=== PATIENT | female | born 1945 | race Caucasian/White ===

== ENCOUNTER 2018-06-15 23:18 | Inpatient (IN) | payer MEDICARE, OTHER ==
[~2018-06-15] VITALS: Ht 175.3 cm; Wt 84.4 kg
[~2018-06-15 23:18] MED LIST: ALBU90OI INH; ALBU90OI6 INH; AMIT50 PO; CHLO25 PO; CLON.5 PO; CLON1 PO; DILTIAZEM 24HR180 M1 PO; FLUSAL5005 INH; FURO20 PO; FURO40 PO; GABA300 PO; HYDACE10B PO; HYDRA50 PO; METF500 PO; METO100 PO; NYST100P TOP; Norco 10-325 T1 EACH PO; OXAZEPAM; OXYC5; OXYC5 PO; Oxazepam30 MG PO; POTCHL20ER PO; PROACE100 PO; RANI150 PO; SERAX PO
[2018-06-16 00:14] LABS: BASOPHILS ABSOLUTE AUTO 0.03 K/mm3 (0.00-0.23); BASOPHILS PERCENT AUTO 0 % (0-2); EOSINOPHILS ABSOLUTE AUTO 0.25 K/mm3 (0.00-0.68); EOSINOPHILS PERCENT AUTO 1 % (0-6); Hematocrit 29.3 % (33.0-51.0); Hemoglobin 9.1 g/dL (11.5-16.0); IMMATURE GRAN ABSOLUTE AUTO 0.71 K/mm3 (0.00-0.10); IMMATURE GRAN PERCENT AUTO 3 % (0-1); LYMPHOCYTES ABSOLUTE AUTO 0.36 K/mm3 (0.84-5.20); LYMPHOCYTES PERCENT AUTO 2 % (21-46); MONOCYTES ABSOLUTE AUTO 1.08 K/mm3 (0.16-1.47); MONOCYTES PERCENT AUTO 5 % (4-13); Mean Corpuscular HGB 29.5 pg (26.0-34.0); Mean Corpuscular HGB Conc 31.1 g/dL (31.5-36.5); Mean Corpuscular Volume 95 fL (80-100); NEUTROPHILS ABSOLUTE AUTO 18.32 K/mm3 (1.96-9.15); NEUTROPHILS PERCENT AUTO 88 % (41-73); Platelet Count 182 K/mm3 (150-400); RDW Coefficient Variation 14.4 % (11.7-14.2); RDW Standard Deviation 49.6 fL (35.1-46.3); Red Blood Cell Count 3.08 M/mm3 (3.80-5.20); White Blood Cell Count 20.75 K/mm3 (4.00-11.30)
[2018-06-16 00:16] LABS: Source, Urine Catheter
[2018-06-16 00:19] LABS: PCO2 Arterial 44.1 mmHg (35-45); PO2 Arterial 76.7 mmHg (80-100); pH Blood Arterial 7.41 (7.35-7.45)
[2018-06-16 00:21] LABS: Bilirubin, Urine Neg (Neg); Blood, Urine Neg (Neg); Glucose Qualitative, Urine Neg (Neg); Ketones, Urine Neg (Neg); Leukocyte Esterase, Urine 1+ (Neg); Nitrite, Urine Neg (Neg); Protein, Urine Neg (Neg); Urobilinogen, Urine NORM (Normal)
[2018-06-16 00:23] LABS: Appearance, Urine Clear (Clear); Color, Urine Yellow (P-Yellow)
[2018-06-16 00:27] LABS: International Normalized Ratio 1.03; Prothrombin Time Results 10.6 Sec (9.7-11.5)
[2018-06-16 00:27] LABS: Bacteria Few /hpf; Red Blood Cells, Urine 0-2 /hpf (0-2); Squamous Epithelial Cells Few /hpf (Few)
[2018-06-16 00:29] LABS: Alanine Aminotransfer (ALT/SGP 11 U/L (12-78); Albumin, Blood 2.7 g/dL (3.4-5.0); Albumin/Globulin Ratio 0.8 (0.8-1.8); Alk Phos 100 U/L (50-136); Anion Gap 10 mmol/L (6-16); Aspartate Aminotrans (AST/SGOT 14 U/L (12-37); Bilirubin, Total 0.2 mg/dL (0.1-1.0); Blood Urea Nitrogen 29 mg/dL (8-24); Bun/Creatinine Ratio 16.8 (12.0-20.0); CO2, Blood 25 mmol/L (21-32); Chloride, Blood 102 mmol/L (98-108); Creatinine, Blood 1.73 mg/dL (0.40-1.00); Ethanol (Alcohol), Blood, Med <3 mg/dL; Globulin, Blood 3.5 g/dL (2.2-4.0); Glomerular Filtration Rate 31 (60-); Glucose, Blood 86 mg/dL (70-99); Magnesium, Blood 1.7 mg/dL (1.6-2.4); Potassium, Blood 4.1 mmol/L (3.5-5.5); Sodium, Blood 137 mmol/L (136-145); Total Protein, Blood 6.2 g/dL (6.4-8.2); Troponin I <0.015 ng/mL (0.000-0.040)
[2018-06-16 00:43] LABS: U Amphetamine Screen Not Detected; U Barbituate Screen Not Detected; U Benzodiazapine Screen DETECTED; U Buprenorphine Screen Not Detected; U Cannabinoids Screen Not Detected; U Cocaine Screen Not Detected; U Methadone Screen Not Detected; U Methamphetamine Screen Not Detected; U Opiates Screen DETECTED; U Oxycodone Screen DETECTED; U Phencyclidine Screen Not Detected; U Propoxyphene Screen Not Detected
[2018-06-16] MEDS ORDERED: ALBU90OI6 INH (01:35)
[2018-06-16] MEDS ORDERED: ALLO100 PO (01:36)
[2018-06-16] MEDS ORDERED: AMIT50 PO (01:37)
[2018-06-16] MEDS ORDERED: BISA5EC PO (01:37)
[2018-06-16] MEDS ORDERED: RANI150EL PO (01:39)
[2018-06-16 14:12] LABS: Hematocrit 26.1 % (33.0-51.0); Hemoglobin 7.8 g/dL (11.5-16.0); Mean Corpuscular HGB 29.1 pg (26.0-34.0); Mean Corpuscular HGB Conc 29.9 g/dL (31.5-36.5); Mean Corpuscular Volume 97 fL (80-100); Mean Platelet Volume 10.1 fL (9.1-12.4); Platelet Count 142 K/mm3 (150-400); RDW Coefficient Variation 14.5 % (11.7-14.2); RDW Standard Deviation 51.2 fL (35.1-46.3); Red Blood Cell Count 2.68 M/mm3 (3.80-5.20); White Blood Cell Count 14.67 K/mm3 (4.00-11.30)
[2018-06-16 14:36] LABS: Albumin, Blood 2.1 g/dL (3.4-5.0); Albumin/Globulin Ratio 0.7 (0.8-1.8); Bilirubin, Total 0.2 mg/dL (0.1-1.0); Bun/Creatinine Ratio 18.2 (12.0-20.0); Calcium, Blood 7.7 mg/dL (8.5-10.1); Creatinine, Blood 1.76 mg/dL (0.40-1.00); Globulin, Blood 3.1 g/dL (2.2-4.0); Potassium, Blood 3.9 mmol/L (3.5-5.5); Total Protein, Blood 5.2 g/dL (6.4-8.2)
[2018-06-16 22:30] LABS: Hemoglobin 7.9 g/dL (11.5-16.0); Mean Corpuscular HGB 29.5 pg (26.0-34.0); Mean Corpuscular HGB Conc 30.4 g/dL (31.5-36.5); Mean Corpuscular Volume 97 fL (80-100); Mean Platelet Volume 10.6 fL (9.1-12.4); Platelet Count 157 K/mm3 (150-400); RDW Coefficient Variation 14.5 % (11.7-14.2); Red Blood Cell Count 2.68 M/mm3 (3.80-5.20); White Blood Cell Count 20.99 K/mm3 (4.00-11.30)
[2018-06-16 22:53] LABS: BAND PERCENT MAN 25 % (0-8); BASOPHILS PERCENT MAN 0 % (0-2); EOSINOPHILS PERCENT MAN 0 % (0-6); LYMPHOCYTES ABSOLUTE MAN 0.83 K/mm3 (0.84-5.20); LYMPHOCYTES PERCENT MAN 4 % (21-46); METAMYELOCYTE PERCENT MAN 1 % (0-0); MONOCYTES ABSOLUTE MAN 0.41 K/mm3 (0.16-1.47); MONOCYTES PERCENT MAN 2 % (4-13); NEUTROPHILS ABSOLUTE MAN 19.52 K/mm3 (1.96-9.15); SEG NEUTROPHILS PERCENT MAN 68 % (41-73); TOTAL CELLS COUNTED 100
[2018-06-17 04:01] LABS: BASOPHILS ABSOLUTE AUTO 0.03 K/mm3 (0.00-0.23); BASOPHILS PERCENT AUTO 0 % (0-2); EOSINOPHILS ABSOLUTE AUTO 0.09 K/mm3 (0.00-0.68); EOSINOPHILS PERCENT AUTO 1 % (0-6); Hematocrit 25.1 % (33.0-51.0); Hemoglobin 7.6 g/dL (11.5-16.0); IMMATURE GRAN ABSOLUTE AUTO 0.68 K/mm3 (0.00-0.10); IMMATURE GRAN PERCENT AUTO 4 % (0-1); LYMPHOCYTES ABSOLUTE AUTO 0.96 K/mm3 (0.84-5.20); LYMPHOCYTES PERCENT AUTO 5 % (21-46); MONOCYTES ABSOLUTE AUTO 0.85 K/mm3 (0.16-1.47); MONOCYTES PERCENT AUTO 5 % (4-13); Mean Corpuscular HGB 29.2 pg (26.0-34.0); Mean Corpuscular HGB Conc 30.3 g/dL (31.5-36.5); Mean Corpuscular Volume 97 fL (80-100); Mean Platelet Volume 10.3 fL (9.1-12.4); NEUTROPHILS ABSOLUTE AUTO 15.48 K/mm3 (1.96-9.15); NEUTROPHILS PERCENT AUTO 86 % (41-73); Platelet Count 167 K/mm3 (150-400); RDW Coefficient Variation 14.6 % (11.7-14.2); RDW Standard Deviation 51.4 fL (35.1-46.3); White Blood Cell Count 18.09 K/mm3 (4.00-11.30)
[2018-06-17 04:18] LABS: Bun/Creatinine Ratio 20.6 (12.0-20.0); Creatinine, Blood 1.75 mg/dL (0.40-1.00); Potassium, Blood 4.4 mmol/L (3.5-5.5)
[2018-06-17] MEDS ORDERED: Zantac150 MG PO (11:38)
[2018-06-17] MEDS ORDERED: COLCRYS0.6 MG PO (11:39)
[2018-06-17] MEDS ORDERED: CLON1 PO (11:40)
[2018-06-17] MEDS ORDERED: IBUP600 PO (11:43)
[2018-06-18 04:20] LABS: BASOPHILS ABSOLUTE AUTO 0.05 K/mm3 (0.00-0.23); BASOPHILS PERCENT AUTO 0 % (0-2); EOSINOPHILS ABSOLUTE AUTO 0.13 K/mm3 (0.00-0.68); EOSINOPHILS PERCENT AUTO 1 % (0-6); Hematocrit 27.2 % (33.0-51.0); Hemoglobin 8.3 g/dL (11.5-16.0); IMMATURE GRAN PERCENT AUTO 3 % (0-1); LYMPHOCYTES PERCENT AUTO 6 % (21-46); MONOCYTES ABSOLUTE AUTO 0.64 K/mm3 (0.16-1.47); MONOCYTES PERCENT AUTO 4 % (4-13); Mean Corpuscular HGB 28.4 pg (26.0-34.0); Mean Corpuscular HGB Conc 30.5 g/dL (31.5-36.5); Mean Platelet Volume 10.6 fL (9.1-12.4); NEUTROPHILS ABSOLUTE AUTO 14.37 K/mm3 (1.96-9.15); NEUTROPHILS PERCENT AUTO 86 % (41-73); Platelet Count 193 K/mm3 (150-400); RDW Coefficient Variation 14.4 % (11.7-14.2); RDW Standard Deviation 48.8 fL (35.1-46.3); Red Blood Cell Count 2.92 M/mm3 (3.80-5.20); White Blood Cell Count 16.69 K/mm3 (4.00-11.30)
[2018-06-18 04:22] LABS: Mean Corpuscular Volume 93 fL (80-100)
[2018-06-18 04:46] LABS: Albumin, Blood 2.2 g/dL (3.4-5.0); Anion Gap 10 mmol/L (6-16); Blood Urea Nitrogen 33 mg/dL (8-24); Bun/Creatinine Ratio 21.3 (12.0-20.0); CO2, Blood 25 mmol/L (21-32); Calcium, Blood 8.3 mg/dL (8.5-10.1); Chloride, Blood 109 mmol/L (98-108); Creatinine, Blood 1.55 mg/dL (0.40-1.00); Glomerular Filtration Rate 35 (60-); Glucose, Blood 86 mg/dL (70-99); Phosphorus, Blood 3.1 mg/dL (2.5-4.9); Potassium, Blood 4.2 mmol/L (3.5-5.5); Sodium, Blood 144 mmol/L (136-145)
[2018-06-19 05:14] LABS: BASOPHILS ABSOLUTE AUTO 0.06 K/mm3 (0.00-0.23); BASOPHILS PERCENT AUTO 0 % (0-2); EOSINOPHILS ABSOLUTE AUTO 0.03 K/mm3 (0.00-0.68); EOSINOPHILS PERCENT AUTO 0 % (0-6); Hematocrit 28.6 % (33.0-51.0); Hemoglobin 8.8 g/dL (11.5-16.0); IMMATURE GRAN PERCENT AUTO 1 % (0-1); LYMPHOCYTES ABSOLUTE AUTO 1.38 K/mm3 (0.84-5.20); LYMPHOCYTES PERCENT AUTO 6 % (21-46); MONOCYTES ABSOLUTE AUTO 0.79 K/mm3 (0.16-1.47); MONOCYTES PERCENT AUTO 4 % (4-13); Mean Corpuscular HGB 28.2 pg (26.0-34.0); Mean Corpuscular HGB Conc 30.8 g/dL (31.5-36.5); Mean Corpuscular Volume 92 fL (80-100); NEUTROPHILS ABSOLUTE AUTO 20.06 K/mm3 (1.96-9.15); NEUTROPHILS PERCENT AUTO 89 % (41-73); Platelet Count 270 K/mm3 (150-400); RDW Coefficient Variation 14.7 % (11.7-14.2); RDW Standard Deviation 49.8 fL (35.1-46.3); Red Blood Cell Count 3.12 M/mm3 (3.80-5.20); White Blood Cell Count 22.52 K/mm3 (4.00-11.30)
[2018-06-19 05:31] LABS: Albumin, Blood 2.4 g/dL (3.4-5.0); Anion Gap 13 mmol/L (6-16); Blood Urea Nitrogen 34 mg/dL (8-24); CO2, Blood 21 mmol/L (21-32); Calcium, Blood 8.4 mg/dL (8.5-10.1); Chloride, Blood 110 mmol/L (98-108); Creatinine, Blood 1.36 mg/dL (0.40-1.00); Glomerular Filtration Rate 40 (60-); Glucose, Blood 123 mg/dL (70-99); Potassium, Blood 4.1 mmol/L (3.5-5.5); Sodium, Blood 144 mmol/L (136-145)
[2018-06-20 05:33] LABS: BASOPHILS ABSOLUTE AUTO 0.05 K/mm3 (0.00-0.23); BASOPHILS PERCENT AUTO 0 % (0-2); EOSINOPHILS ABSOLUTE AUTO 0.14 K/mm3 (0.00-0.68); EOSINOPHILS PERCENT AUTO 1 % (0-6); Hemoglobin 8.6 g/dL (11.5-16.0); IMMATURE GRAN ABSOLUTE AUTO 0.18 K/mm3 (0.00-0.10); IMMATURE GRAN PERCENT AUTO 2 % (0-1); LYMPHOCYTES ABSOLUTE AUTO 1.14 K/mm3 (0.84-5.20); LYMPHOCYTES PERCENT AUTO 10 % (21-46); MONOCYTES ABSOLUTE AUTO 0.87 K/mm3 (0.16-1.47); MONOCYTES PERCENT AUTO 8 % (4-13); Mean Corpuscular HGB 28.5 pg (26.0-34.0); Mean Corpuscular HGB Conc 30.7 g/dL (31.5-36.5); Mean Corpuscular Volume 93 fL (80-100); Mean Platelet Volume 10.5 fL (9.1-12.4); NEUTROPHILS ABSOLUTE AUTO 9.04 K/mm3 (1.96-9.15); NEUTROPHILS PERCENT AUTO 79 % (41-73); Platelet Count 242 K/mm3 (150-400); RDW Coefficient Variation 14.8 % (11.7-14.2); RDW Standard Deviation 51.6 fL (35.1-46.3); Red Blood Cell Count 3.02 M/mm3 (3.80-5.20); White Blood Cell Count 11.42 K/mm3 (4.00-11.30)
[2018-06-20 05:54] LABS: Albumin, Blood 2.4 g/dL (3.4-5.0); Anion Gap 11 mmol/L (6-16); Blood Urea Nitrogen 31 mg/dL (8-24); Bun/Creatinine Ratio 23.3 (12.0-20.0); CO2, Blood 23 mmol/L (21-32); Calcium, Blood 8.5 mg/dL (8.5-10.1); Chloride, Blood 111 mmol/L (98-108); Creatinine, Blood 1.33 mg/dL (0.40-1.00); Glomerular Filtration Rate 41 (60-); Glucose, Blood 115 mg/dL (70-99); Phosphorus, Blood 2.6 mg/dL (2.5-4.9); Potassium, Blood 3.6 mmol/L (3.5-5.5); Sodium, Blood 145 mmol/L (136-145)
[2018-06-22] MEDS ORDERED: ALLO100 PO (09:13)
[2018-06-22] MEDS ORDERED: FURO20 PO (09:14)
[2018-06-22] MEDS ORDERED: DOCU100 PO (09:14)
[2018-06-22] MEDS ORDERED: SACC250C PO (09:15)
[2018-06-22] MEDS ORDERED: DULERA 200 MCG/13 GM INH (09:15)
[2018-06-22] MEDS ORDERED: DOXY100 PO (09:17)
== END 2018-06-22 14:25 | disposition home or self-care (01) | DRG 871 ==
LOC: ER 23:18 → PCU 06-16 04:54 → ICUW 06-16 04:54 → ICUE 06-16 04:54 → PCU 06-17 17:11 → MEDS 06-18 15:14 → ENPENDDIS 06-22 09:00 → MEDS 06-22 14:25
PROVIDERS: Emergency Medicine; Hospitalist; Internal Medicine; Internal Medicine Critical Care Medicine
PROC: 06HM33Z Insertion of Infusion Device into Right Femoral Vein, Percutaneous Approach (ICD-10-PCS; principal; 2018-06-16)
PROC: B54BZZA Ultrasonography of Right Lower Extremity Veins, Guidance (ICD-10-PCS; 2018-06-16)
PROC: 3E033XZ Introduction of Vasopressor into Peripheral Vein, Percutaneous Approach (ICD-10-PCS; 2018-06-16)
PROC: 5A09457 Assistance with Respiratory Ventilation, 24-96 Consecutive Hours, Continuous Positive Airway Pressure (ICD-10-PCS; 2018-06-16)
DX: A41.3 Sepsis due to Hemophilus influenzae (principal); J14 Pneumonia due to Hemophilus influenzae; R65.21 Severe sepsis with septic shock; J96.01 Acute respiratory failure with hypoxia; G93.41 Metabolic encephalopathy; N17.9 Acute kidney failure, unspecified; L97.429 Non-pressure chronic ulcer of left heel and midfoot with unspecified severity; L97.419 Non-pressure chronic ulcer of right heel and midfoot with unspecified severity; I13.0 Hypertensive heart and chronic kidney disease with heart failure and stage 1 through stage 4 chronic kidney disease, or unspecified chronic kidney disease; F05 Delirium due to known physiological condition; I50.32 Chronic diastolic (congestive) heart failure; S82.202K Unspecified fracture of shaft of left tibia, subsequent encounter for closed fracture with nonunion; S32.9XXK Fracture of unspecified parts of lumbosacral spine and pelvis, subsequent encounter for fracture with nonunion; A41.02 Sepsis due to Methicillin resistant Staphylococcus aureus; I95.9 Hypotension, unspecified; E11.22 Type 2 diabetes mellitus with diabetic chronic kidney disease; E11.649 Type 2 diabetes mellitus with hypoglycemia without coma; J44.9 Chronic obstructive pulmonary disease, unspecified; M10.30 Gout due to renal impairment, unspecified site; E86.0 Dehydration; N18.3 Chronic kidney disease, stage 3 (moderate); F10.20 Alcohol dependence, uncomplicated; L25.9 Unspecified contact dermatitis, unspecified cause; H10.9 Unspecified conjunctivitis; F17.290 Nicotine dependence, other tobacco product, uncomplicated; M62.81 Muscle weakness (generalized); D72.829 Elevated white blood cell count, unspecified; F60.9 Personality disorder, unspecified; F41.0 Panic disorder [episodic paroxysmal anxiety]; T50.905A Adverse effect of unspecified drugs, medicaments and biological substances, initial encounter; K21.9 Gastro-esophageal reflux disease without esophagitis; Z79.899 Other long term (current) drug therapy; Z79.84 Long term (current) use of oral hypoglycemic drugs; Z89.411 Acquired absence of right great toe; Z88.6 Allergy status to analgesic agent; Z88.2 Allergy status to sulfonamides; Z88.1 Allergy status to other antibiotic agents; Z87.01 Personal history of pneumonia (recurrent); Z99.3 Dependence on wheelchair
CPT/HCPCS: 31720; 36415; 36556; 36600; 51702; 71045; 71046; 71250; 80048; 80053; 80069; 81001; 82803; 82947; 83605; 83690; 83735; 83880; 84145; 84484; 85025; 85027; 85610; 86850; 86900; 86901; 87040; 87070; 87077; 87086; 87185; 87186; 87205; 93005; 93010; 93306; 94640; 94660; 94667; 94760; 96361; 96365; 97162; 97166; 97530; 99285-25; C1751; G0480; G8978; G8979; G8987; G8988; J0456; J0696; J0713; J1650; J2405; J2550; J2760; J2765; J3010; J7030; J7050; J7060; J7120

== ENCOUNTER 2021-07-14 12:05 | Emergency (ER) | payer MEDICARE, OTHER ==
[~2021-07-14] VITALS: Ht 177.8 cm; Wt 99.8 kg
[~2021-07-14 12:05] MED LIST changes: +ALLO100 PO; +BISA5EC PO; +COLCRYS0.6 MG PO; -DILTIAZEM 24HR180 M1 PO; +DILTIAZEM 24HR240 M3 PO; +DOCU100 PO; +DOXY100 PO; +DULERA 200 MCG/13 GM INH; +IBUP600 PO; +RANI150EL PO; +SACC250C PO; +Zantac150 MG PO
[2021-07-14] MEDS ORDERED: HYDRA25 PO (12:46)
[2021-07-14] MEDS ORDERED: NARCAN4 M1 (15:23)
[2021-07-14] MEDS ORDERED: OXAYDO5 M1 PO (15:23)
== END 2021-07-14 17:35 ==
LOC: ER 12:05
DX: S82.251A Displaced comminuted fracture of shaft of right tibia, initial encounter for closed fracture (principal); I11.0 Hypertensive heart disease with heart failure; I50.9 Heart failure, unspecified; E11.9 Type 2 diabetes mellitus without complications; Z88.6 Allergy status to analgesic agent; Z88.2 Allergy status to sulfonamides; Z88.0 Allergy status to penicillin; Z88.1 Allergy status to other antibiotic agents; Z88.8 Allergy status to other drugs, medicaments and biological substances; Z79.899 Other long term (current) drug therapy; W18.30XA Fall on same level, unspecified, initial encounter
CPT/HCPCS: 29515; 36415; 73502; 73562-RT; 73590; 73700; 91303; 96375; 99284-25; A9270; J1170; M0243

== ENCOUNTER 2021-07-16 12:09 | Inpatient (IN) | payer MEDICARE, OTHER ==
[~2021-07-16] VITALS: Ht 175.3 cm; Wt 78.0 kg
[~2021-07-16 12:09] MED LIST changes: +HYDRA25 PO; +NARCAN4 M1; -Norco 10-325 T1 EACH PO; +Norco 5-325 Ta1 EACH PO; +OXAYDO5 M1 PO
[2021-07-16 13:47] LABS: Albumin, Blood 2.3 g/dL (3.4-5.0); Albumin/Globulin Ratio 0.5 (0.8-1.8); Bilirubin, Total 0.4 mg/dL (0.1-1.0); Bun/Creatinine Ratio 25.6 (12.0-20.0); Creatinine, Blood 2.15 mg/dL (0.40-1.00); Globulin, Blood 4.2 g/dL (2.2-4.0); Potassium, Blood 3.2 mmol/L (3.5-5.5); Total Protein, Blood 6.5 g/dL (6.4-8.2)
[2021-07-16 13:59] LABS: BASOPHILS ABSOLUTE AUTO 0.03 K/mm3 (0.00-0.23); BASOPHILS PERCENT AUTO 0 % (0-2); EOSINOPHILS ABSOLUTE AUTO 0.08 K/mm3 (0.00-0.68); EOSINOPHILS PERCENT AUTO 1 % (0-6); Hematocrit 32.4 % (33.0-51.0); Hemoglobin 10.3 g/dL (11.5-16.0); IMMATURE GRAN ABSOLUTE AUTO 0.06 K/mm3 (0.00-0.10); IMMATURE GRAN PERCENT AUTO 1 % (0-1); LYMPHOCYTES PERCENT AUTO 5 % (21-46); MONOCYTES ABSOLUTE AUTO 0.68 K/mm3 (0.16-1.47); MONOCYTES PERCENT AUTO 7 % (4-13); Mean Corpuscular HGB 31.2 pg (26.0-34.0); Mean Corpuscular HGB Conc 31.8 g/dL (31.5-36.5); Mean Corpuscular Volume 98 fL (80-100); NEUTROPHILS ABSOLUTE AUTO 7.89 K/mm3 (1.96-9.15); NEUTROPHILS PERCENT AUTO 85 % (41-73); RDW Standard Deviation 50.4 fL (35.1-46.3); White Blood Cell Count 9.24 K/mm3 (4.00-11.30)
[2021-07-16 14:04] LABS: Mean Platelet Volume 9.9 fL (9.1-12.4); Platelet Count 210 K/mm3 (150-400)
[2021-07-16] MEDS ORDERED: NYSTOP15 GM TOP (14:28)
[2021-07-16] MEDS ORDERED: CLONAZEPAM1 MG PO (14:29)
[2021-07-16] MEDS ORDERED: COLCRYS0.6 M1 PO (14:30)
[2021-07-16] MEDS ORDERED: OXYC5 PO (14:35)
[2021-07-16] MEDS ORDERED: Potassium Chlo20 ME1 PO (14:36)
[2021-07-16] MEDS ORDERED: FLUTICASONE-SA1 EAC9 INH (14:39)
[2021-07-16 16:49] LABS: Percent Saturation 4.9 % (15.0-50.0)
--- NOTE | 2021-07-16 19:17 | NUR ---
SHIFT SUMMARY PT ARRIVED TO ROOM VIA GURNEY. PT TRANFERRED TO BED AND THEN BEGAN COUGHING AND IMMEDIATELY VOMITIED ALL OVER HERSELF IN BED. COMPLETE BED CHANGE DONE. PHOTOS OF WOUNDS TAKEN ON CAMERA AND THEN CAMERA GIVEN TO COMMERCIAL CONSTRUCTION SUPERINTENDENT NURSE WHO AGREED TO PRINT PHOTOS AND PLACE IN CHART. PT POOR HISTORIAN WHO COUNDN'T RECALL MEDICATIONS AND LAST TAKEN, STATES SHE USES [facility]. PT STATES THAT SHE LIVES IN HER HOME WITH HER SPOUSE AND THAT HER DAUGHTER AND SPOUSE LIVE IN HER HOME. SHE WAS RELUCTANT TO DISCUSS THE SOCIAL DYNAMICS AND STATED THAT IF THIS NURSE DISCUSSED THE INFORMATION WITH ANYONE ELSE THAT SHE WOULD DENY SAYING IT. SHE STATED THAT HER DAUGHTER WAS VERBALLY ABUSIVE. BED IN LOW POSITION, CALL LIGHT WITHIN REACH THOUGH PATIENT STATES THAT SHE WILL "NEVER REMEBER HOW TO USE THAT THING." REPORT GIVEN TO COMMERCIAL CONSTRUCTION SUPERINTENDENT NURSE WHO ASSUMES CARE AT THIS TIME.
--- NOTE | 2021-07-16 22:22 | NUR ---
CALLED HOSPITALIST INFORMED HIM THAT THIS PT HAS BEEN VOMITING (REPORTED ON PREVIOUS SHIFT, TWICE ON THIS SHIFT). I REQUESTED NAUSEA MEDS. NEW ORDERS ENTERED IN EMAR.
--- NOTE | 2021-07-17 04:19 | NUR ---
SHIFT SUMMARY ADMITTED FOR RLL PNEUMONIA/ROXY. DNR CODE. PT HAS BEEN VOMITING. ZOFRAN ORDERED AND GIVEN. PT IS COUGHING HARD OCCASIONALLY, AND THIS MAY BE CAUSING HER VOMITING. SHE IS CONFUSED. SHE PULLED HER IV THIS SHIFT. IV ANTIBIOTICS ARE SCHEDULED. RIGHT LEG HAS A BRACE. LEFT LEG IS DEFORMED. SHE IS BEDRIDDEN. SHE CALLS OUT FREQUENTLY. TREE TRIMMING SUPERVISOR CONSULT IS ORDERED. SHE NORMALLY LIVES WITH AND DAUGHTER. BUTTOCKS EXCORIATED ON ADMIT. BILATERAL PRESSURE WOUNDS ON HEELS. I WAS UNABLE TO PRINT PICTURES FOR CHART THE PRINTER MALFUNCTIONED - MAINTENANCE INFORMED.
[2021-07-17 05:52] LABS: BASOPHILS ABSOLUTE AUTO 0.04 K/mm3 (0.00-0.23); BASOPHILS PERCENT AUTO 1 % (0-2); EOSINOPHILS ABSOLUTE AUTO 0.12 K/mm3 (0.00-0.68); EOSINOPHILS PERCENT AUTO 2 % (0-6); Hematocrit 33.5 % (33.0-51.0); Hemoglobin 10.7 g/dL (11.5-16.0); IMMATURE GRAN ABSOLUTE AUTO 0.07 K/mm3 (0.00-0.10); IMMATURE GRAN PERCENT AUTO 1 % (0-1); LYMPHOCYTES PERCENT AUTO 9 % (21-46); MONOCYTES ABSOLUTE AUTO 0.51 K/mm3 (0.16-1.47); MONOCYTES PERCENT AUTO 8 % (4-13); Mean Corpuscular HGB 31.1 pg (26.0-34.0); Mean Corpuscular HGB Conc 31.9 g/dL (31.5-36.5); Mean Corpuscular Volume 97 fL (80-100); Mean Platelet Volume 9.8 fL (9.1-12.4); NEUTROPHILS ABSOLUTE AUTO 5.45 K/mm3 (1.96-9.15); NEUTROPHILS PERCENT AUTO 80 % (41-73); Platelet Count 228 K/mm3 (150-400); RDW Coefficient Variation 14.2 % (11.7-14.2); RDW Standard Deviation 50.5 fL (35.1-46.3); Red Blood Cell Count 3.44 M/mm3 (3.80-5.20); White Blood Cell Count 6.79 K/mm3 (4.00-11.30)
[2021-07-17 06:14] LABS: Albumin, Blood 2.3 g/dL (3.4-5.0); Albumin/Globulin Ratio 0.5 (0.8-1.8); Bilirubin, Total 0.4 mg/dL (0.1-1.0); Bun/Creatinine Ratio 30.5 (12.0-20.0); Calcium, Blood 9.7 mg/dL (8.5-10.1); Creatinine, Blood 1.64 mg/dL (0.40-1.00); Globulin, Blood 4.4 g/dL (2.2-4.0); Potassium, Blood 2.8 mmol/L (3.5-5.5); Total Protein, Blood 6.7 g/dL (6.4-8.2)
--- NOTE | 2021-07-17 18:02 | NUR ---
SHIFT SUMMARY PT IS AXO 1, THINKS SHE IS AT HOME AND OTHER TIMES ITS ALL WORD SALAD. SHE IS EASILY REDIRECTABLE. HAS OCCASIONAL ACHES AND PAINS, MEDICATED PER MAR. NO OTHER ISSUES OF NOT THIS SHIFT. WILL CONTINUE TO MONITOR.
--- NOTE | 2021-07-17 23:56 | NUR ---
PT STATUS DAY RN REPORTS THAT THE PT IS CONFUSED AND BELIEVES SHE IS AT HOME WITH FAMILY. THE PT HAS BEEN CALLING OUT LOUDLY SINCE I ARRIVED ON SHIFT. SHE IS CONFUSED AND HALLUCINATING THROUGHOUT SHIFT. SHE DOES NOT KNOW WHERE SHE IS. SHE DID NOT SLEEP ON MY PREVIOUS SHIFT WITH HER, AND SHE HAS NOT SLEPT THUS FAR ON THIS SHIFT. I HAVE MEDICATED FOR PAIN AND ANXIETY.
--- NOTE | 2021-07-18 04:19 | NUR ---
SHIFT SUMMARY ADMITTED FOR RLL PNEUMONIA/ROXY. DNR CODE. LIVES W/, DAUGHTER LIVES ON PROPERTY. IV ANTIBIOTICS ARE SCHEDULED. SHE IS CONFUSED AND HALLUCINATES. SHE DID NOT SLEEP THIS SHIFT. SHE CALLED OUT NONSENSICALLY THROUGHOUT SHIFT. SHE IS BEDRIDDEN. SHE HAS EXCORIATIONS ON HER BUTTOCKS, DRESSING CHANGED THIS SHIFT. SHE HAS PRESSURE ULCERS ON BOTH HEELS, DRESSINGS AND HEEL PROTECTORS IN PLACE. SHE IS INCONTINENT, ATTENDS IN PLACE. PUREE/CARDIAC DIET. PILLS CAN BE WHOLE W/WATER, 1 @ A TIME OR CRUSHED IN SAUCE, DEPENDING ON HER PREFERENCE. BRACE ON RT LEG, LEFT LEG IS DEFORMED.
[2021-07-18 05:25] LABS: BASOPHILS ABSOLUTE AUTO 0.04 K/mm3 (0.00-0.23); BASOPHILS PERCENT AUTO 1 % (0-2); EOSINOPHILS ABSOLUTE AUTO 0.34 K/mm3 (0.00-0.68); EOSINOPHILS PERCENT AUTO 6 % (0-6); Hematocrit 32.6 % (33.0-51.0); Hemoglobin 10.2 g/dL (11.5-16.0); IMMATURE GRAN ABSOLUTE AUTO 0.11 K/mm3 (0.00-0.10); IMMATURE GRAN PERCENT AUTO 2 % (0-1); LYMPHOCYTES ABSOLUTE AUTO 0.67 K/mm3 (0.84-5.20); LYMPHOCYTES PERCENT AUTO 11 % (21-46); MONOCYTES ABSOLUTE AUTO 0.42 K/mm3 (0.16-1.47); MONOCYTES PERCENT AUTO 7 % (4-13); Mean Corpuscular HGB 30.7 pg (26.0-34.0); Mean Corpuscular HGB Conc 31.3 g/dL (31.5-36.5); Mean Corpuscular Volume 98 fL (80-100); Mean Platelet Volume 9.6 fL (9.1-12.4); NEUTROPHILS PERCENT AUTO 74 % (41-73); Platelet Count 212 K/mm3 (150-400); RDW Coefficient Variation 14.1 % (11.7-14.2); RDW Standard Deviation 50.9 fL (35.1-46.3); Red Blood Cell Count 3.32 M/mm3 (3.80-5.20); White Blood Cell Count 6.08 K/mm3 (4.00-11.30)
[2021-07-18 05:43] LABS: Bun/Creatinine Ratio 29.2 (12.0-20.0); Creatinine, Blood 1.3 mg/dL (0.40-1.00)
--- NOTE | 2021-07-18 19:14 | NUR ---
SHIFT SUMMARY PT IS AGITATED AND AX0 X1. SHE HAS HAD SEVERAL LARGE BM'S TODAY THAT REQUIRED WHOLE BED CHANGES AND SHE IS COMBATIVE DURING THEM. SHE SPOKE WITH PSYCH TODAY AND HER MEDICATIONS WERE REVISED AND REINSTATED. WILL CONTINUE TO MONITOR.
--- NOTE | 2021-07-19 06:41 | NUR ---
SHIFT SUMMARY NO ACUTE CHANGES THIS SHIFT, CONFUSED, OCCASIONAL HALLUCINATIONS & CALLING OUT FOR FAMILY, MEDICATED 1X FOR PAIN THEN FIALLING TO SLEEP ABOUT 0130, WAKES EASILY FOR CARE THEN RETURNS TO SLEEP, SLEEPING AT THIS TIME, CALL LIGHT IN REACH, BED ALARM ACTIVE, WILL CONT TO MONITOR UNTIL REPORT GIVEN TO DAY RN.
[2021-07-19 07:51] LABS: Hematocrit 33.9 % (33.0-51.0); Hemoglobin 10.7 g/dL (11.5-16.0)
[2021-07-19 08:15] LABS: Calcium, Blood 9.9 mg/dL (8.5-10.1); Creatinine, Blood 1.13 mg/dL (0.40-1.00); Potassium, Blood 3.6 mmol/L (3.5-5.5)
--- NOTE | 2021-07-19 09:51 | NUR ---
DR WRIGHT CALLED. CHANGES TO MEDS.
--- NOTE | 2021-07-19 16:57 | NUR ---
PT C/O HEADACHE AND STOMACH ACHE. PROTONIX DUE, NORCO AVAIL. MED PER GUZMAN.R
--- NOTE | 2021-07-19 18:52 | NUR ---
PT HAS BEEN MOSTLY PLEASANT TODAY. DID C/O HEADACHE AND UPSET/PAIN STOMACHE. GAVE NORCO FOR PAIN AND PROTONIX PER EMAR. PT STATES BETTER. STILL LOOSE STOOLS. BOTTOM EXCORIATED. MEPILEX INPLACE AND SOME PINK CREAM APPROP. TOO CONFUSED TO FOLLOW DIRECTIONS FOR PT/OT. BED IN LOW POSITION, CALL LITE IN REACH. BED ALARN ON FOR SAFETY
[2021-07-20 04:55] LABS: Hematocrit 34.8 % (33.0-51.0); Hemoglobin 10.8 g/dL (11.5-16.0); Mean Corpuscular HGB 30.7 pg (26.0-34.0); Mean Corpuscular Volume 99 fL (80-100); Mean Platelet Volume 9.5 fL (9.1-12.4); Platelet Count 212 K/mm3 (150-400); RDW Coefficient Variation 14.3 % (11.7-14.2); RDW Standard Deviation 51.7 fL (35.1-46.3); Red Blood Cell Count 3.52 M/mm3 (3.80-5.20); White Blood Cell Count 5.87 K/mm3 (4.00-11.30)
--- NOTE | 2021-07-20 05:09 | NUR ---
END OF SHIFT SUMMARY: Pt is pleasant tonight. Answers all orientation questins right. Occasional episodes of hallucination and talking to self. Pt's bottom is excorieted, miplex in place. No acute events overnight. Ot is resting at this time. Bed in lowest position, call light within reach.
[2021-07-20 05:49] LABS: Albumin, Blood 2.3 g/dL (3.4-5.0); Anion Gap 8 mmol/L (6-16); Blood Urea Nitrogen 18 mg/dL (8-24); Bun/Creatinine Ratio 15.9 (12.0-20.0); CO2, Blood 31 mmol/L (21-32); Calcium, Blood 9.4 mg/dL (8.5-10.1); Chloride, Blood 105 mmol/L (98-108); Creatinine, Blood 1.13 mg/dL (0.40-1.00); Glomerular Filtration Rate 47 (60-); Glucose, Blood 83 mg/dL (70-99); Phosphorus, Blood 3.3 mg/dL (2.5-4.9); Potassium, Blood 3.3 mmol/L (3.5-5.5); Sodium, Blood 144 mmol/L (136-145)
--- NOTE | 2021-07-20 18:28 | NUR ---
PT MOSTLY PLEASNT TODAY. DID GIVE PAIN AND NAUSEA MED TODAY. CONTINUES ON CONFUSION. DID NOT NOTICE HALLUCINATIONS, JUST CONFUSION. DID EAT SOME TODAY FOR ME. PREFERS PEPSI TO FOOD. FAMILY NOT COMFORTBLE WITH DC TO HOME, NEED BETTER/MORE HELP. DR RAM WANTING TO KEEP PT OVER WEEKEND TO MAKE MED CHANGES. BED IN LOW POSITION, CALLLLITE N REACH, [facility]
--- NOTE | 2021-07-21 05:26 | NUR ---
END OF SHIFT SUMMARY: Pt is pleasant and confused tonight. Some hallucinations throughout the night. Pt moslty rested well tonight. Dressings C,D,I. Vitals within normal limits. call light within reach, bed in lowest position.
[2021-07-21 05:32] LABS: Albumin, Blood 2.2 g/dL (3.4-5.0); Anion Gap 9 mmol/L (6-16); Blood Urea Nitrogen 16 mg/dL (8-24); Bun/Creatinine Ratio 15.2 (12.0-20.0); CO2, Blood 27 mmol/L (21-32); Calcium, Blood 9.2 mg/dL (8.5-10.1); Chloride, Blood 104 mmol/L (98-108); Creatinine, Blood 1.05 mg/dL (0.40-1.00); Glomerular Filtration Rate 51 (60-); Glucose, Blood 80 mg/dL (70-99); Phosphorus, Blood 3.3 mg/dL (2.5-4.9); Potassium, Blood 3.7 mmol/L (3.5-5.5); Sodium, Blood 140 mmol/L (136-145)
--- NOTE | 2021-07-21 17:00 | NUR ---
75 Y F ADMITTED WITH ROXY AND PNEUMONIA. PT HAS REPORTEDLY BEEN CONFUSED AND EXPERIENCING HALLUCINATIONS. TODAY PT HAS BEEN A&O, AND APPROPRIATE WITH CARE. PT WAS ADVANCED FROM PUREE DIET TO MECH SOFT AND TOLERATING WELL BUT REPORTS SHE DOESN'T HAVE MUCH OF AN APPETITE. PT STATES THAT SHE REALLY WANTS TO GO HOME AND MISSES HER BUT IS WORRIED THAT HER DAUGHTER AND SON IN LAW ARE MAD AT HER AND WONT LET HER RETURN HOME BECAUSE SHE IS TOO MUCH WORK. WILL PASS ON INFORMATION FOR D/C PLANNING.
--- NOTE | 2021-07-21 17:51 | NUR ---
PT C/O 06/29 CHRONIC PAIN, PT BECOMING RESTLESS AND ANXIOUS R/T NOT HAVING PAIN MEDS AVAILABLE AT THIS TIME. MD NOTIFIED AND NEW ORDER RECIEVED TO INCREASE PRN PAIN MEDS FROM BID TO Q6HRS. PT MEDICATED PER EMAR, WILL REVAL PER PROTOCO; AND DOCUMENT RESPONSE TO PAIN MEDS IN EMAR.
--- NOTE | 2021-07-22 19:19 | NUR ---
SHIFT SUMMARY 75 Y F ADMITTED WITH ROXY AND PNEUMONIA. PT HAS BEEN A&O TODAY BUT HAS HAS SEVERAL MOMENTS OF CONFUSION AND DIDN'T KNOW WHERE SHE WAS AND THOUGHT NURSING STAFF WAS FAMILY OR FRIENDS IN HER HOME. PT HAS BECOME MORE AGGITATED TODAY AND CALLED OUT FREQUENTLY BUT CANNOT REMEMBER WHAT SHE NEEDED. PT C/O 8-06/29 PAIN AND HAS BEEN MEDICATED PER EMAR. PT WAS NOTABLE UPSET AFTER PHONE CALLS WITH FAMILY TODAY AND HAD EXADURATED EMOTIONAL OUTBURST AFTER TALKING WITH HER DAUGHTER. PT STATED "I WANT TO GO HOME BUT IM SCARED OF HER" SHE ALSO STATES SHE "WOULD RATHER GO TO A HALF-WAY" AND ALSO SAID "I WISH I WAS ". DISCUSSED D/C PLANNING WITH PT AND ENCOURAGED HER TO EXPRESS HER CONCERNS WITH HER DR. PT HAD EXISTING BREAKDOWN ON COCCYX AND PRESSURE ULCERS TO HEALS. DRSGS TO HEALS CHANGED TODAY AND NOTED TO HAVE MORE DRAINAGE THAN PREVIOUS. EXUDRY BANDAGES APPLIED TO HEELS BILAT AND WRAPPED WITH CURLEX. FOAM HEAL PROTECTORS APPLIED AND PT POSITIONED WITH HEALS FLOATING. NO OTHER ACUTE CHANGES NOTED.
--- NOTE | 2021-07-23 00:57 | NUR ---
WOUND CARE COMPLETED - CHANGED EXUDRY DRESSING, WRAPPED WITH GAUZE SECURED WITH TAPE. APPLIED TRINIDAD SOCKS WITH HEEL PADDING, WRAPPED IN PINK HEEL PROTECTOR BOOTS. FLOATING HEELS ON PILLOWS. BLUE BRACE IS IN PLACE TO RIGHT LEG.
--- NOTE | 2021-07-23 04:56 | NUR ---
SHIFT SUMMARY PT'S CBG WAS 89. REPORTS DECREASED APPETITE, DECLINED OFFERS OF ASSISTANCE WITH MEALS. ALLEVYN SACRAL FOAM IN PLACE ON OPEN ULCER ON SACRUM. PT WITH COUGH, NON-PRODUCTIVE. PT CONTINUES WITH CONFUSION - UNABLE TO RECALL WHERE SHE IS, AT TIMES THINKING SHE IS AT HOME IN HER ROOM. PT REPORTS FEAR THAT HER FAMILY AT HOME WILL HURT HER . RN OBSERVED PT STARING INTO THE TV, TELLING THE TV TO "SHUT UP." DR. WRIGHT INVOLVED, PT WITH HX OF SCHIZOPHRENIA. EXUDRY DRESSINGS REPLACED ON HEELS AND PLACED HEEL PROTECTORS, EXUDRY HAD SCANT AMOUNT OF DRAINAGE. BED IN LOWEST POSITION, VSS. WILL CONTINUE TO MONITOR.
[2021-07-23] MEDS ORDERED: DIAZ10 PO (15:49)
[2021-07-23] MEDS ORDERED: Seroquel Xr50 MG PO (15:52)
[2021-07-23] MEDS ORDERED: Vitamin D1000 UNI1 PO (15:53)
--- NOTE | 2021-07-23 17:30 | NUR ---
DISCHARGE HOME D/C HOME W/ HH ORDERS RECIEVED AND INITIATED. [facility] SET UP BY BLOCK ENGRAVER, HOME MED RX SENT TO [facility] PER FAMILY REQUEST. HOME MEDS AND D/C INSTRUCTIONS REVIEWED OVER THE PHONE WITH PT'S DAUGHTER DONNIE. IV D/C'D INTACT AND PT D/C HOME. TRANSPORTED VIA GURNEY WITH [facility].
== END 2021-07-23 17:52 | disposition home health service (06) | DRG 682 ==
LOC: ER 12:09 → MEDS 16:39
PROVIDERS: Emergency Medicine; Internal Medicine; ADMIT Hospitalist
DX: N17.9 Acute kidney failure, unspecified (principal); J69.0 Pneumonitis due to inhalation of food and vomit; I13.0 Hypertensive heart and chronic kidney disease with heart failure and stage 1 through stage 4 chronic kidney disease, or unspecified chronic kidney disease; G93.40 Encephalopathy, unspecified; Z66 Do not resuscitate; E86.0 Dehydration; E87.6 Hypokalemia; I50.9 Heart failure, unspecified; N18.9 Chronic kidney disease, unspecified; F10.20 Alcohol dependence, uncomplicated; M10.9 Gout, unspecified; E11.22 Type 2 diabetes mellitus with diabetic chronic kidney disease; F41.9 Anxiety disorder, unspecified; K21.9 Gastro-esophageal reflux disease without esophagitis; D63.1 Anemia in chronic kidney disease; G47.00 Insomnia, unspecified; F17.210 Nicotine dependence, cigarettes, uncomplicated; Z71.6 Tobacco abuse counseling; Z88.2 Allergy status to sulfonamides; Z88.6 Allergy status to analgesic agent; Z88.0 Allergy status to penicillin; Z88.1 Allergy status to other antibiotic agents; Z88.8 Allergy status to other drugs, medicaments and biological substances; Z79.899 Other long term (current) drug therapy; Z90.49 Acquired absence of other specified parts of digestive tract; Z98.890 Other specified postprocedural states
CPT/HCPCS: 36415; 71046; 71250; 73590; 74018; 76770; 80048; 80053; 80069; 82607; 82728; 82746; 82947; 83036; 83540; 83550; 83880; 84145; 85014; 85018; 85025; 85027; 92526; 92610; 93005; 93010; 93306; 94640; 94664; 94760; 96365; 97110; 97129; 97162; 97167; 97530; 99285-25; A9270; C9113; J0696; J1650; J2405; J7030

== ENCOUNTER → 2021-08-09 | Outpatient (CLI) | payer MEDICARE, OTHER ==
[~2021-08-09] MED LIST changes: +CLONAZEPAM1 MG PO; +COLCRYS0.6 M1 PO; +DIAZ10 PO; +FLUTICASONE-SA1 EAC9 INH; +NYSTOP15 GM TOP; +Potassium Chlo20 ME1 PO; +Seroquel Xr50 MG PO; +Vitamin D1000 UNI1 PO
[2021-08-09 20:28] LABS: Albumin, Blood 2.3 g/dL (3.4-5.0); Albumin/Globulin Ratio 0.6 (0.8-1.8); Bilirubin, Total 0.3 mg/dL (0.1-1.0); Bun/Creatinine Ratio 19.4 (12.0-20.0); Calcium, Blood 9.5 mg/dL (8.5-10.1); Creatinine, Blood 1.34 mg/dL (0.40-1.00); Globulin, Blood 4.1 g/dL (2.2-4.0); Potassium, Blood 4.2 mmol/L (3.5-5.5); Total Protein, Blood 6.4 g/dL (6.4-8.2)
== END | disposition home or self-care (01) ==
LOC: LAB 12:45 → LAB SHORT 12:45
PROVIDERS: Family Medicine
DX: I50.30 Unspecified diastolic (congestive) heart failure (principal)
CPT/HCPCS: 80053

== ENCOUNTER → 2021-09-04 | Outpatient (CLI) | payer MEDICARE, OTHER ==
[2021-09-04 17:59] LABS: Source, Urine Catheter
[2021-09-04 19:53] LABS: Appearance, Urine Hazy (Clear); Bilirubin, Urine Neg (Neg); Blood, Urine 2+ (Neg); Color, Urine Yellow (P-Yellow); Glucose Qualitative, Urine Neg (Neg); Ketones, Urine Neg (Neg); Leukocyte Esterase, Urine 3+ (Neg); Nitrite, Urine Neg (Neg); Protein, Urine 1+ (Neg); Specific Gravity, Urine 1.015 (1.003-1.022); Urobilinogen, Urine 1+ (Normal); pH, Urine 6.5 (5.0-8.0)
[2021-09-04 20:08] LABS: Bacteria Many /hpf; Red Blood Cells, Urine 0-2 /hpf (0-2); Squamous Epithelial Cells Rare /hpf (Few); White Blood Cells, Urine 50-100 /hpf (0-5)
== END | disposition home or self-care (01) ==
LOC: LAB SHORT 17:57
PROVIDERS: Family Medicine
DX: N30.90 Cystitis, unspecified without hematuria (principal)
CPT/HCPCS: 81001; 87077; 87086; 87186

== ENCOUNTER 2021-09-23 12:40 | Inpatient (IN) | payer MEDICARE, OTHER ==
[~2021-09-23] VITALS: Ht 175.3 cm; Wt 77.3 kg
[~2021-09-23 12:40] MED LIST changes: +DILTIAZEM 24HR180 M3 PO; -DILTIAZEM 24HR240 M3 PO; -NYSTOP15 GM TOP
[2021-09-23 13:57] LABS: BASOPHILS ABSOLUTE AUTO 0.03 K/mm3 (0.00-0.23); BASOPHILS PERCENT AUTO 0 % (0-2); EOSINOPHILS ABSOLUTE AUTO 0.03 K/mm3 (0.00-0.68); EOSINOPHILS PERCENT AUTO 0 % (0-6); Hematocrit 34.1 % (33.0-51.0); Hemoglobin 10.5 g/dL (11.5-16.0); IMMATURE GRAN ABSOLUTE AUTO 0.08 K/mm3 (0.00-0.10); IMMATURE GRAN PERCENT AUTO 1 % (0-1); LYMPHOCYTES ABSOLUTE AUTO 0.81 K/mm3 (0.84-5.20); LYMPHOCYTES PERCENT AUTO 6 % (21-46); MONOCYTES PERCENT AUTO 4 % (4-13); Mean Corpuscular HGB 29.9 pg (26.0-34.0); Mean Corpuscular HGB Conc 30.8 g/dL (31.5-36.5); Mean Corpuscular Volume 97 fL (80-100); NEUTROPHILS ABSOLUTE AUTO 13.26 K/mm3 (1.96-9.15); NEUTROPHILS PERCENT AUTO 90 % (41-73); Platelet Count 228 K/mm3 (150-400); RDW Coefficient Variation 15.9 % (11.7-14.2); RDW Standard Deviation 56.8 fL (35.1-46.3); Red Blood Cell Count 3.51 M/mm3 (3.80-5.20); White Blood Cell Count 14.81 K/mm3 (4.00-11.30)
[2021-09-23 14:16] LABS: Albumin, Blood 1.9 g/dL (3.4-5.0); Albumin/Globulin Ratio 0.5 (0.8-1.8); Bilirubin, Total 0.4 mg/dL (0.1-1.0); Bun/Creatinine Ratio 14.6 (12.0-20.0); Calcium, Blood 8.6 mg/dL (8.5-10.1); Creatinine, Blood 1.03 mg/dL (0.40-1.00); Globulin, Blood 3.9 g/dL (2.2-4.0); Potassium, Blood 4.9 mmol/L (3.5-5.5); Total Protein, Blood 5.8 g/dL (6.4-8.2)
[2021-09-23 16:47] LABS: Influenza A, PCR NEGATIVE (NEGATIVE); Influenza B, PCR NEGATIVE (NEGATIVE); Resp Syncytial Virus, PCR NEGATIVE (NEGATIVE); SARS-Cov-2 (COVID-19) PCR, MMC NEGATIVE (NEGATIVE)
--- NOTE | 2021-09-23 18:52 | NUR ---
TRANSFER FROM ER TO MEDICAL 75 YR OLD FEMALE, ALTERED MENTAL STATUS, HALLUCINATIONS, ALERT BUT NOT ORIENTED, LARGE DECUB ULCER TO SACRUM WITH TUNNELING. PICTURES TAKEN OF WOUND TO SACRUM, HEELS, GREAT TOE OF LT FOOT AND BUNION AREA OF GREAT TOE. TRANSFER OCCURING AT SHIFT CHANGE, GIVING REPORT TO ONCOMING BREAKFAST BAR ATTENDANT NURSE. CALL LIGHT WITHIN REACH OF PT.
[2021-09-23] MEDS ORDERED: NYSTATIN15 GM TOP (19:34)
[2021-09-23] MEDS ORDERED: COLCHICINE0.6 MG PO (19:35)
[2021-09-23] MEDS ORDERED: AMIT50 PO (19:36)
[2021-09-23] MEDS ORDERED: Oxazepam30 MG PO (19:43)
[2021-09-23] MEDS ORDERED: OXYC5 PO (19:44)
[2021-09-23] MEDS ORDERED: Norco 10-325 T1 EACH PO (19:45)
[2021-09-24 05:11] LABS: Hematocrit 31.8 % (33.0-51.0); Hemoglobin 9.6 g/dL (11.5-16.0); Mean Corpuscular HGB 29.5 pg (26.0-34.0); Mean Corpuscular HGB Conc 30.2 g/dL (31.5-36.5); Mean Corpuscular Volume 98 fL (80-100); Platelet Count 218 K/mm3 (150-400); RDW Coefficient Variation 16.1 % (11.7-14.2); RDW Standard Deviation 57.8 fL (35.1-46.3); Red Blood Cell Count 3.25 M/mm3 (3.80-5.20); White Blood Cell Count 13.68 K/mm3 (4.00-11.30)
[2021-09-24 06:10] LABS: Alanine Aminotransfer (ALT/SGP 11 U/L (12-78); Albumin, Blood 1.7 g/dL (3.4-5.0); Albumin/Globulin Ratio 0.5 (0.8-1.8); Alk Phos 139 U/L (50-136); Anion Gap 8 mmol/L (6-16); Aspartate Aminotrans (AST/SGOT 10 U/L (12-37); Bilirubin, Total 0.3 mg/dL (0.1-1.0); Blood Urea Nitrogen 16 mg/dL (8-24); Bun/Creatinine Ratio 18.7 (12.0-20.0); CO2, Blood 27 mmol/L (21-32); Calcium, Blood 8.3 mg/dL (8.5-10.1); Chloride, Blood 107 mmol/L (98-108); Creatinine, Blood 0.86 mg/dL (0.40-1.00); Globulin, Blood 3.1 g/dL (2.2-4.0); Glomerular Filtration Rate >60 (60-); Glucose, Blood 125 mg/dL (70-99); Sodium, Blood 142 mmol/L (136-145); Total Protein, Blood 4.8 g/dL (6.4-8.2)
--- NOTE | 2021-09-24 06:42 | NUR ---
SHIFT SUMMARY PT WAS ASLEEP AT THE START OF THIS SHIFT. PT VERY CONFUSED AND N/V STILL WAS PRESENT UPON WAKING UP. PT. THREW UP 3 TIMES THIS SHIFT AND MEDICATED PER EMAR. PT. WAS CLEANED UP AND REQUESTED TOMATO SOUP, PT. DID NOT EAT THE SOUP THIS SHIFT. PT. WAS COOPERATIVE YET DELUSIONAL MOST OF THE SHIFT. PT. RESTED SOME AND IS CURRENTLY ASLEEP WITH RISE AND FALL OF CHEST. WILL CONTINUE TO MONITOR UNTIL REPORT IS GIVEN.
--- NOTE | 2021-09-24 17:16 | NUR ---
SHIFT SUMMARY PATIENT MEDICATED FOR PAIN X1. PATIENT REPORTS NAUSEA, BUT REFUSED MEDICATIONS. PATIENT DENIES SHORTNESS OF BREATH. PATIENT TITRATED TO ROOM AIR AND IS SATURATING AT 97%. PATIENT IS VERY CONFUSED AND AGGITATED THIS MORNING. PATIENT WANTING TO GO HOME. TANGIBLE SPEECH. PATIENT FREQUENTLY YELLING OUT. PATIENT DOES NOT FOLLOW DIRECTIONS WELL AND IS NOT EASILY REDIRECTED. MEDICATED X1 FOR ANXIETY. PATIENT EATING AND DRINKING LUNCH AND DINNER WELL. PATIENT HAD VISITOR IN AFTERNOON, THIS CALMED PATIENT. DRESSING CHANGED ON SACRUM. GENERAL SURGERY CONSULTED. NEW PICTURES TAKEN OF WOUND AND PUT IN CHART. PATIENT CURRENTLY UNABLE TO TRANSFER.
--- NOTE | 2021-09-25 05:40 | NUR ---
SHIFT SUMMARY PT. AOX1 AND VERY AGITATED AT THE START OF THIS SHIFT. PT. HAS YELLED OUT RANDOM THINGS DISTURBING OTHERS THIS SHIFT. PT. MEDICATIED PER EMAR AND HAS A NEW ORDER TO HELP WITH AGITATION. PT. VERY RESTLESS AND PULLED OUT AN IV WHILE ATTEMPTING TO PULL OUT THE NEW IV, PLACED BY CHARGE NURSE. PT. THINKS THIS IS THEIR HOME AND SMOKING IMAGINARY CIGARETTES. PT CANNOT BE REDIRECTED AND BECOMES AGITATED WITH STAFF. THE PT. HAS TRIED TO EXIT THE BED SEVERAL TIMES THIS SHIFT AND IRRITABLE AT THE BED ALARM IN PLACE. PT. HAS NOT RESTED ALL SHIFT AND CURRENTLY IN BED WATCHING TV WHILE STILL YELLING INTO THE HALLWAY. THIS NURSE WILL CONTINUE TO MONITOR UNTIL REPORT IS GIVEN.
[2021-09-25 09:52] LABS: Source, Urine Catheter
[2021-09-25 09:56] LABS: Appearance, Urine Clear (Clear); Bilirubin, Urine Neg (Neg); Blood, Urine Neg (Neg); Color, Urine Yellow (P-Yellow); Glucose Qualitative, Urine Neg (Neg); Ketones, Urine Neg (Neg); Leukocyte Esterase, Urine Neg (Neg); Nitrite, Urine Neg (Neg); Protein, Urine 1+ (Neg); Urobilinogen, Urine NORM (Normal); pH, Urine 6.5 (5.0-8.0)
[2021-09-25 09:57] LABS: Appearance, Urine Clear (Clear); Bilirubin, Urine Neg (Neg); Blood, Urine Neg (Neg); Color, Urine Yellow (P-Yellow); Glucose Qualitative, Urine Neg (Neg); Ketones, Urine Neg (Neg); Leukocyte Esterase, Urine Neg (Neg); Nitrite, Urine Neg (Neg); Protein, Urine 1+ (Neg); Urobilinogen, Urine NORM (Normal); pH, Urine 6.5 (5.0-8.0)
--- NOTE | 2021-09-25 18:06 | NUR ---
SHIFT SUMMARY PATIENT DENIES PAIN, NAUSEA, AND SHORTNESS OF BREATH. PATIENT WAS INCREDIBLY AGGITATED THIS MORNING. WASTEWATER TREATMENT ENGINEER REPORTED THAT PATIENT PULLED IV OUT. PATIENT WAS PULLING AT NEW IV WHEN I CAME INTO ROOM. HUTCHISON PLACED FOR WOUND HEALING. PATIENT PULLING AT THAT. PATIENT TRYING TO GET OUT OF BED AND BEING VERY VERBALLY AGGRESSIVE TO STAFF. DR. BUSH NOTIFIED, NEW ORDERS FOR HALDOL AND SOFT WRIST RESTRAINTS. PATIENT HALLUCINATING ENTIRE SHIFT. PATIENT ORIENTED TO SELF. PATIENT REFUSING TO EAT. DRESSING CHANGED X2. PER DR. COOPER, USE CALCIUM ALGNATE TO PACK WOUND, THEN COVER WITH MEPILEX.
[2021-09-26 04:57] LABS: BASOPHILS ABSOLUTE AUTO 0.03 K/mm3 (0.00-0.23); BASOPHILS PERCENT AUTO 1 % (0-2); EOSINOPHILS ABSOLUTE AUTO 0.28 K/mm3 (0.00-0.68); EOSINOPHILS PERCENT AUTO 4 % (0-6); Hematocrit 31.4 % (33.0-51.0); Hemoglobin 9.6 g/dL (11.5-16.0); IMMATURE GRAN ABSOLUTE AUTO 0.03 K/mm3 (0.00-0.10); IMMATURE GRAN PERCENT AUTO 1 % (0-1); LYMPHOCYTES ABSOLUTE AUTO 0.97 K/mm3 (0.84-5.20); LYMPHOCYTES PERCENT AUTO 15 % (21-46); MONOCYTES ABSOLUTE AUTO 0.54 K/mm3 (0.16-1.47); MONOCYTES PERCENT AUTO 8 % (4-13); Mean Corpuscular HGB 29.8 pg (26.0-34.0); Mean Corpuscular HGB Conc 30.6 g/dL (31.5-36.5); Mean Corpuscular Volume 98 fL (80-100); Mean Platelet Volume 10.4 fL (9.1-12.4); NEUTROPHILS PERCENT AUTO 72 % (41-73); Platelet Count 199 K/mm3 (150-400); RDW Coefficient Variation 15.8 % (11.7-14.2); RDW Standard Deviation 57.2 fL (35.1-46.3); Red Blood Cell Count 3.22 M/mm3 (3.80-5.20); White Blood Cell Count 6.65 K/mm3 (4.00-11.30)
[2021-09-26 05:32] LABS: Alanine Aminotransfer (ALT/SGP 10 U/L (12-78); Albumin, Blood 1.6 g/dL (3.4-5.0); Albumin/Globulin Ratio 0.4 (0.8-1.8); Alk Phos 114 U/L (50-136); Anion Gap 9 mmol/L (6-16); Aspartate Aminotrans (AST/SGOT 9 U/L (12-37); Bilirubin, Total 0.4 mg/dL (0.1-1.0); Blood Urea Nitrogen 10 mg/dL (8-24); Bun/Creatinine Ratio 14.1 (12.0-20.0); CO2, Blood 25 mmol/L (21-32); Calcium, Blood 8.4 mg/dL (8.5-10.1); Chloride, Blood 108 mmol/L (98-108); Creatinine, Blood 0.71 mg/dL (0.40-1.00); Globulin, Blood 3.7 g/dL (2.2-4.0); Glomerular Filtration Rate >60 (60-); Glucose, Blood 82 mg/dL (70-99); Magnesium, Blood 1.8 mg/dL (1.6-2.4); Phosphorus, Blood 2.5 mg/dL (2.5-4.9); Potassium, Blood 3.4 mmol/L (3.5-5.5); Sodium, Blood 142 mmol/L (136-145); Total Protein, Blood 5.3 g/dL (6.4-8.2)
--- NOTE | 2021-09-26 06:05 | NUR ---
SHIFT SUMMARY PT. AOX1 AND WAS SOMEWHAT AGITATED AT THE START OF THIS SHIFT C/O LEG PAIN. PT. SPIT OUT WHOLE PILLS BUT ASKED FOR THEM TO BE CRUSHED IN APPLESAUCE. PT. STILL HAVING HALLUCINATIONS WHILE YELLING AT TIMES RANDOMLY. PT. RESTED BETTER THIS SHIFT ONCE FINALLY ASLEEP. PT CURRENTLY ASLEEP WTIH RISE AND FALL OF CHEST AND THIS NURSE WILL CONTINUE TO MONITOR UNTIL REPORT IS GIVEN.
--- NOTE | 2021-09-26 16:39 | NUR ---
PATIENT CONTINUES TO BE VERY CONFUSED AND IS HAVING HALLUCINATIONS AT TIMES. VSS, ON RA. DRESSINGS TO L HIP AND R BUTTOCKS REMAIN C/D/I. NORCO GIVEN X1 TO TREAT BLE PAIN. POOR APPETITE, ONLY TAKING BITES FOR MEALS. BILATERAL WRIST RESTRAINTS TO PROTECT LINES. BRACE TO RLE IN PLACE. BLOOD SUGARS ACHS, NO COVERAGE NEEDED THIS SHIFT. 22G IV TO R AC WNL, D51/2NS AT 100ML/HR. DAUGHTER CALIN AT BEDSIDE THIS EVENING.
[2021-09-27 05:45] LABS: BASOPHILS ABSOLUTE AUTO 0.01 K/mm3 (0.00-0.23); BASOPHILS PERCENT AUTO 0 % (0-2); EOSINOPHILS ABSOLUTE AUTO 0.29 K/mm3 (0.00-0.68); EOSINOPHILS PERCENT AUTO 5 % (0-6); Hematocrit 27.6 % (33.0-51.0); Hemoglobin 8.7 g/dL (11.5-16.0); IMMATURE GRAN ABSOLUTE AUTO 0.02 K/mm3 (0.00-0.10); IMMATURE GRAN PERCENT AUTO 0 % (0-1); LYMPHOCYTES ABSOLUTE AUTO 0.78 K/mm3 (0.84-5.20); LYMPHOCYTES PERCENT AUTO 14 % (21-46); MONOCYTES ABSOLUTE AUTO 0.37 K/mm3 (0.16-1.47); MONOCYTES PERCENT AUTO 7 % (4-13); Mean Corpuscular HGB 30.1 pg (26.0-34.0); Mean Corpuscular HGB Conc 31.5 g/dL (31.5-36.5); Mean Corpuscular Volume 96 fL (80-100); Mean Platelet Volume 10.4 fL (9.1-12.4); NEUTROPHILS ABSOLUTE AUTO 4.14 K/mm3 (1.96-9.15); NEUTROPHILS PERCENT AUTO 74 % (41-73); Platelet Count 191 K/mm3 (150-400); RDW Coefficient Variation 15.6 % (11.7-14.2); RDW Standard Deviation 54.1 fL (35.1-46.3); Red Blood Cell Count 2.89 M/mm3 (3.80-5.20); White Blood Cell Count 5.61 K/mm3 (4.00-11.30)
[2021-09-27 06:39] LABS: Albumin, Blood 1.4 g/dL (3.4-5.0); Anion Gap 11 mmol/L (6-16); Blood Urea Nitrogen 13 mg/dL (8-24); Bun/Creatinine Ratio 18.6 (12.0-20.0); CO2, Blood 20 mmol/L (21-32); Calcium, Blood 7.9 mg/dL (8.5-10.1); Chloride, Blood 110 mmol/L (98-108); Glomerular Filtration Rate >60 (60-); Glucose, Blood 91 mg/dL (70-99); Phosphorus, Blood 1.9 mg/dL (2.5-4.9); Potassium, Blood 3.3 mmol/L (3.5-5.5); Sodium, Blood 141 mmol/L (136-145)
--- NOTE | 2021-09-27 07:40 | NUR ---
NO CHANGES OVERNIGHT. JEFFREY SLEPT WELL, VITAL SIGNS WERE STABLE. RIGHT FOREARM IV WORKING WELL FOR IV ANTIBIOTICS AND HYDRATION FLUID.
--- NOTE | 2021-09-27 17:52 | NUR ---
PATIENT REMAINS CONFUSED AND ORIENTED TO SELF AND FAMILY ONLY. HOLLERS OUT AND BECOMES AGITATED WITH REPOSITIONING. DRESSING CHANGED TO SACRAL WOUND USING CALCIUM ALGINATE AND MEPILEX DRESSING. VSS, ON RA. 22G IV TO R AC WNL, D51/2 NS INFUSING AT 100ML/HR. ABX TO TREAT INFECTION. CONTINUES TO HAVE A VERY POOR APPETITE. FAMILY BROUGHT IN SOME DINNER AND PATIENT WAS ABLE TO EAT HALF OF A CHICKEN SANDWICH. SMALL BM TODAY, BOWEL CARE ORDERED PRN. WRIST RESTRAINTS IN PLACE TO PROTECT LINES.
[2021-09-28 05:44] LABS: Hematocrit 32.6 % (33.0-51.0)
--- NOTE | 2021-09-28 06:08 | NUR ---
JEFFREY SLEPT RIGHT THROUGH HER HS MEDICATION TIME, AND THIS RN DID NOT FEEL COMFORTABLE THAT SHE WOULD BE ABLE TO SAFELY SWALLOW THEM. AT MIDNIGHT, SHE WAS MUCH MORE ALERT AND ABLE TO TAKE HER MEDS WITH APPLESAUCE WHILE SHE RECEIVED HER 2400 DOSE OF FLAGYL. SACRAL WOUND DRESSINGS REMAIN INTACT, AND SHE DID NOT STATE OR DEMONSTRATE AND INDICATION OF PAIN OR DISCOMFORT. sHE IS STILL CALLING OUT WHILE SHE SLEEPS. MOSTLY GUTTERAL SOUNDING LONG NOISES (LIKE GROWLING) WHEN SHE GOES INTO A DEEP SLEEP.
[2021-09-28 06:13] LABS: Albumin, Blood 1.7 g/dL (3.4-5.0); Anion Gap 10 mmol/L (6-16); Blood Urea Nitrogen 18 mg/dL (8-24); Bun/Creatinine Ratio 22.8 (12.0-20.0); CO2, Blood 21 mmol/L (21-32); Chloride, Blood 110 mmol/L (98-108); Creatinine, Blood 0.79 mg/dL (0.40-1.00); Glomerular Filtration Rate >60 (60-); Glucose, Blood 98 mg/dL (70-99); Magnesium, Blood 1.9 mg/dL (1.6-2.4); Phosphorus, Blood 1.8 mg/dL (2.5-4.9); Potassium, Blood 3.3 mmol/L (3.5-5.5); Sodium, Blood 141 mmol/L (136-145)
--- NOTE | 2021-09-28 16:54 | NUR ---
SHIFT SUMMARY PATIENT IS ALERT AND ORIENTED TO SELF ONLY. PATIENT IS IN SOFT BILATERAL WRIST RESTRAINTS. RESTRAINT DOCUMENTATION IS COMPLETE AND ORDER EXPIRES AT 0930 TOMORROW. PATIENT HAD LITTLE TO EAT FOR BREAKFAST AND ATE MORE AT LUNCH. PATIENT TAKES MEDICATIONS CRUSHED IN APPLESAUCE. PATIENT HAS BEEN MORE ALERT THAN PRIOR SHIFTS PER REPORT. PATIENT HAS NOT HAD ANY EPISODES OF PAIN, NAUSEA, SOB OR VOMMITTING THIS SHIFT. NO ACUTE CHANGES THIS SHIFT. VITAL SIGNS REVIEWED. WILL MONITOR UNTIL SHIFT CHANGE.
--- NOTE | 2021-09-29 04:07 | NUR ---
PATIENT HAD AN UNEVENTFUL NIGHT. PATIENT IS ORIENTED TO NONE. CONFUSED; COMMUNICATION IS NONSENSIBLE. VITALS HAVE BEEN STABLE AND WNL. PATIENT CONTINUES TO RECIEVE IV AND PO ABX WITHOUT S/SX ADVERSE REACTIONS NOTED OR REPORTED. PATIENT HAS BEEN SLEEPING IN BED COMFORTABLE ALL NIGHT. CALL LIGHT WITHIN REACH.
[2021-09-29 05:15] LABS: Hematocrit 28.2 % (33.0-51.0); Hemoglobin 9.1 g/dL (11.5-16.0)
[2021-09-29 05:50] LABS: Albumin, Blood 1.5 g/dL (3.4-5.0); Anion Gap 10 mmol/L (6-16); Blood Urea Nitrogen 15 mg/dL (8-24); Bun/Creatinine Ratio 18.7 (12.0-20.0); CO2, Blood 21 mmol/L (21-32); Calcium, Blood 8.2 mg/dL (8.5-10.1); Chloride, Blood 110 mmol/L (98-108); Glomerular Filtration Rate >60 (60-); Glucose, Blood 96 mg/dL (70-99); Phosphorus, Blood 3.3 mg/dL (2.5-4.9); Potassium, Blood 3.8 mmol/L (3.5-5.5); Sodium, Blood 141 mmol/L (136-145)
--- NOTE | 2021-09-29 10:59 | NUR ---
NURSE NOTES OBTAINED AN ORDER FOR RIGHT WRIST RESTRAINT AND A TRINIDAD VEST FROM DR CADENA
--- NOTE | 2021-09-29 16:27 | NUR ---
SHIFT SUMMARY PATIENT IS ALERT AND ORIENTED SELF ONLY. PATIENT IS MORE ALERT IN MORNING AND AFTER BREAKFAST IS DROWSY AND SLEEPS. REQUESTS THAT PHYSICAL THERAPY CALL THE DAUGHTER THAT IS LISTED ON BOARD TO VISIT DURING THERAPY TO GET MOST BENEFTIT. NO ACUTE ISSUES THIS SHIFT. VITAL SIGNS REVIEWED. RESTRAINT ORDER CHANGED TO ONE SOFT RIGHT WRIST RESTRAINT AND A TRINIDAD VEST FOR PATIENT SAFETY AND LINE SAFETY. CALL LIGHT IN PLACE. WILL MONITOR UNTIL SHIFT CHANGE.
--- NOTE | 2021-09-30 04:44 | NUR ---
PATIENT TOOK PM MEDS IN APPLESAUCE CRUSHED. SHE THEN RESTED MOST OF THE SHIFT UPON AWAKENING SHE BEGAN TO YELL OUT AND CURSE ASKING FOR SCISSORS TO REMOVE HER RESTRAINTS. PT IS IN A TRINIDAD AND A R SOFT WRIST RESTAINT. VITALS REVIEWED. WILL CONTINUE TO MONITOR UNTIL SHIFT CHANGE.
--- NOTE | 2021-09-30 08:00 | NUR ---
pt awake but sleepy, glucose is in the 50's will give juice and recheck in 15, pt is confused, cooperative with care, follows some commands well, lungs are clear, dim in bases, resp even and unlabored, no cough noted, hrr, power glide to prisca site is clear and patent, but positional, btx4, abd flat soft nontender, incont of urine and stool, attends in place, pressure ulcers to lowback, left hip, heels, eddie, call light in reach.
--- NOTE | 2021-09-30 08:49 | NUR ---
pt blood glucose in the 50's this am, was given apple juice and pudding but went down with next check, her iv fluids weren't infusing, pushed d50 at this time, with charge nurse in room, will recheck glucose in 15. pt is awake, but confused, which is her baseline, power glide is positional, charge nurse is repositioning it at this time. call light in reach.
--- NOTE | 2021-09-30 18:07 | NUR ---
pt became a bit aggitated this afternoon, was still cooperative with care, but wouldn't eat lunch, better this evening, blood glucose remains on the low end, increased her d5 to 75mls/hr, Dr. Sanchez aware. changed dressing on wound and packed as before. is soundly sleeping this evening. call light in reach.
--- NOTE | 2021-10-01 04:24 | NUR ---
PATIENT WAS RESTLESS AT START OF SHIT. tOOK PM MEDS AND TOLERATED WELL. DRANK MOST OF MONTEZ IN APPLE JUICE. HUTCHISON PATENT HANGING AT THE BEDSIDE. D5 RUNNING @ 75ML/HR. VITALS REVIEWED WILL CONTINUE TO MONITOR.
[2021-10-01 10:30] LABS: BASOPHILS ABSOLUTE AUTO 0.03 K/mm3 (0.00-0.23); BASOPHILS PERCENT AUTO 1 % (0-2); EOSINOPHILS ABSOLUTE AUTO 0.42 K/mm3 (0.00-0.68); EOSINOPHILS PERCENT AUTO 8 % (0-6); Hematocrit 26.6 % (33.0-51.0); Hemoglobin 8.4 g/dL (11.5-16.0); IMMATURE GRAN ABSOLUTE AUTO 0.08 K/mm3 (0.00-0.10); IMMATURE GRAN PERCENT AUTO 1 % (0-1); LYMPHOCYTES PERCENT AUTO 20 % (21-46); MONOCYTES ABSOLUTE AUTO 0.42 K/mm3 (0.16-1.47); MONOCYTES PERCENT AUTO 8 % (4-13); Mean Corpuscular HGB 29.4 pg (26.0-34.0); Mean Corpuscular HGB Conc 31.6 g/dL (31.5-36.5); Mean Corpuscular Volume 93 fL (80-100); Mean Platelet Volume 10.6 fL (9.1-12.4); NEUTROPHILS ABSOLUTE AUTO 3.52 K/mm3 (1.96-9.15); NEUTROPHILS PERCENT AUTO 63 % (41-73); Platelet Count 253 K/mm3 (150-400); RDW Coefficient Variation 15.9 % (11.7-14.2); RDW Standard Deviation 54.7 fL (35.1-46.3); Red Blood Cell Count 2.86 M/mm3 (3.80-5.20); White Blood Cell Count 5.57 K/mm3 (4.00-11.30)
[2021-10-01 11:13] LABS: Albumin, Blood 1.5 g/dL (3.4-5.0); Anion Gap 8 mmol/L (6-16); Blood Urea Nitrogen 18 mg/dL (8-24); Bun/Creatinine Ratio 22.6 (12.0-20.0); CO2, Blood 24 mmol/L (21-32); Calcium, Blood 8.3 mg/dL (8.5-10.1); Chloride, Blood 107 mmol/L (98-108); Glomerular Filtration Rate >60 (60-); Glucose, Blood 100 mg/dL (70-99); Phosphorus, Blood 2.4 mg/dL (2.5-4.9); Potassium, Blood 3.5 mmol/L (3.5-5.5); Sodium, Blood 139 mmol/L (136-145)
--- NOTE | 2021-10-01 18:18 | NUR ---
Review of pt with nursing. pt in restraint and confussed told me I look like a deer tag. Reviewed her care with the technical aide and staff. called daughter to get heitory we had an extensive conversation. It has been a difficult road for her and her and sister. the have been careing for her wounds and all her care. they relay many difficuties in getting care during covid. the also had to take father to the ER last night he had TIA. they thing it is from the stress he is 80. we reviewed her swallowing difficulties and struggles with PT/OT. pt daughter cried through most of the conversation . She told me that today would of been her sons birthday. He . Gently discussed aging parents and needing to plan for their decline. advised we may have to discuss a feeding tube. Advise liborio may not be able to improve her conditions and may need to discuss another plan but will try as per their wishes. Reviewed with morales will get speech consult.
--- NOTE | 2021-10-01 18:40 | NUR ---
SHIFT SUMMARY PT TALKING INTO HALLWAY WHEN SHE HEARS STAFF TALKING. NEEDS FREQUENT REASSURANCE THAT SHE IS NOT BEING SPOKEN TO. DOES SAY ODD AND INAPPROPRIATE THINGS WHEN STAFF IN ROOM LIKE "I HAVEN'T SEEN YOUR DAD YET TODAY" BED BATH GIVEN THIS EVENING WHEN COCCYX WOUND DRESSING CHANGED. COMPLAINED OF BEING COLD AND THEN WHEN WARM BLANKET PLACED ON HER SHE COMPLAINED OF IT BEING TOO BIG. EATING ONLY VERY SMALL ANOUNTS OF FOOD WHEN GIVEN. ORIENTED ONLY TO SELF WHENEVER ASKED WHERE SHE WAS AND THE DATE. SPOKE WITH DAUGHTER ON THE PHONE THIS MORNING AND GAVE AN UPDATE. SLEEPING SINCE BEDBATH.
--- NOTE | 2021-10-02 00:56 | NUR ---
PATIENT WAS DROWSEY AND TOOK TIME TO AWAKEN FOR 0000 MEDICATION. VITALS STABLE FSBG 76. WILL CONTINUE TO MONITOR.
--- NOTE | 2021-10-02 04:34 | NUR ---
PATIENT HAS BEEN SLEEPING MOST OF THE SHIFT.PATIENT TOOK ALL MEDICATIONS AND TOLERATED WELL. PT HAS PATENT HUTCHISON DRAING TO GRAVITY. D5 RUNNING @75. FSBG WAS 76 AT 2100. PATIENT HAS TO BE ENCOURAGED GREATY TO TAKE MEDICATIONS AND ORAL INTAKE. VITALS REVIEWED WILL CONTINUE TO MONITOR.
--- NOTE | 2021-10-02 22:53 | NUR ---
PATIENT HAS BEEN RESTING SINCE THE START OF SHIFT. PATIENT WAS DROUSY AND GIVING MEDICATION WAS DIFFICULT. REQUIRED EXTREME ENCOURAGEMENT. PATIENT REFUSED TO DRINK.
--- NOTE | 2021-10-03 05:28 | NUR ---
PATIENT AWAKENED THIS AM AND WAS VERY CONVERSATIONA. PATIENT IS A&O X1 PERSON. PATIENT WAS ABLE TO EXPRESS THAT HER LEGS HURT FROM AN INJURY. PAIN MEDIATION WAS ADMINISTERED. GAVE PATIENT A DULCOLAX SUPPOSITORY WITH MINIMAL RESULTS. PATIENT DRANK 1/4 OF AN ENSURE THEN REFUSED THE REST. VIATLS REVIEWED. WILL CONTINUE TO MONITOR.
--- NOTE | 2021-10-03 14:47 | NUR ---
SPOKE TO DR. NORMAN REGARDING PIPE STEM ALIGNER'S REPORT OF STOOL IMPACTION. RECEIVED TELEPHONE ORDER FOR FLEET ENEMA X 1. ALSO REPORTED TO PROVIDER THAT PT'S DAUGHTER HAD CALLED TO REPORT THAT PT "DID NOT HAVE A SANDWICH YESTERDAY. SHE ONLY ATE THE MEAT OUT OF A SLIDER SANDWICH", REPORTED PER DAUGHTER'S REQUEST.
--- NOTE | 2021-10-03 18:30 | NUR ---
SHIFT SUMMARY: PT IMPACTED WITH STOOL; ENEMA GIVEN, MANUALLY DISIMPACTED BY Iam MCKEON RN. STATES IS FEELING BETTER. VERY POOR APPETITE. COCCYX DRESSING CHANGED AFTER VISUAL INSPECTION BY DR. NORMAN. WOUND CONSULT PLACED FOR FURTHER RECS. CBG < 100; D5W + 0.45% NS INFUSING. C/O PAIN IN "MY BOTTOM", BUT RESTED WELL AFTER DISIMPACTION. HUTCHISON DRAINING ADEQUATE URINE. CONFUSED, CRIES OUT AT TIMES.
--- NOTE | 2021-10-03 22:40 | NUR ---
PATIENT REUSED PM MEDICATIONS. WOULD NOT OPEN MOUTH AND BECOME VERBALLY AGRESSIVE WHEN TALKING WITH STAFF.
--- NOTE | 2021-10-04 06:08 | NUR ---
PATIENT REFUSED PM MEDIATIONS AND WOULD NOT DRINK BUT A FEW SIPS. PARIENT WAS NOT COOPERATIVE WITH CARE. VITALS REVIEWED.
[2021-10-04 06:12] LABS: Hematocrit 28.9 % (33.0-51.0); Hemoglobin 8.9 g/dL (11.5-16.0); Mean Corpuscular HGB 28.6 pg (26.0-34.0); Mean Corpuscular HGB Conc 30.8 g/dL (31.5-36.5); Mean Corpuscular Volume 93 fL (80-100); Mean Platelet Volume 10.5 fL (9.1-12.4); Platelet Count 214 K/mm3 (150-400); RDW Coefficient Variation 15.8 % (11.7-14.2); RDW Standard Deviation 54.3 fL (35.1-46.3); Red Blood Cell Count 3.11 M/mm3 (3.80-5.20); White Blood Cell Count 4.91 K/mm3 (4.00-11.30)
[2021-10-04 07:31] LABS: Anion Gap 7 mmol/L (6-16); Blood Urea Nitrogen 27 mg/dL (8-24); Bun/Creatinine Ratio 34.2 (12.0-20.0); CO2, Blood 27 mmol/L (21-32); Calcium, Blood 8.4 mg/dL (8.5-10.1); Chloride, Blood 103 mmol/L (98-108); Creatinine, Blood 0.79 mg/dL (0.40-1.00); Glomerular Filtration Rate >60 (60-); Glucose, Blood 74 mg/dL (70-99); Potassium, Blood 3.4 mmol/L (3.5-5.5); Sodium, Blood 137 mmol/L (136-145)
[2021-10-04 11:55] LABS: Influenza A, PCR NEGATIVE (NEGATIVE); Influenza B, PCR NEGATIVE (NEGATIVE); Resp Syncytial Virus, PCR NEGATIVE (NEGATIVE); SARS-Cov-2 (COVID-19) PCR, MMC NEGATIVE (NEGATIVE)
--- NOTE | 2021-10-04 18:28 | NUR ---
Pt AOX1, ISOLATION WITH DROPLET PRECAUTION CONTINUES. PT WAS COMPLIANT TO MEDICATION REGIMEN, POOR APPETITE NOTED. IV FLUIDD5 1/2 CONTINUES AT 75 ML/HR PER ORDER. POWER GLIDE TO CHUCK, DRESSING INTACT NO SWELLING OR REDNESS NOTED. PT WAS ABLE TO USE BSC WITH TOTAL ASSIST X 3, SMALL BM X 2. PEG TUBE PLACEMENT ON HOLD. PT HAD POOR PO INTAKE. DRESSING DONE TO SACRUM AREA, SMALL AMOUNT OF DRAINAGE NOTED. BED LEFT IN LOWEST POSTION, CALL LIGHT IN REACH.
[2021-10-04] MEDS ORDERED: NYSTOP15 GM TOP (19:34)
--- NOTE | 2021-10-05 04:53 | NUR ---
JEFFREY REMAINED STABLE ALL NIGHT. HER BLOOD GLUCOSE WAS 48 AT THE BEGININNG OF THE SHIFT, SHE WAS GIVEN ORANGE JUICE AND APPLE SAUCE AND HER GLUCOSE WENT UP TO 100. SHE WAS STABLE THROUGHOUT THE SHIFT.
--- NOTE | 2021-10-05 18:43 | NUR ---
PT AOX 1, COMPLIANT TO MEDICATION REGIMEN. 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 IV ACCESSTO CHUCK, REMAINS PATENT, INTACT, NO SWELLING OR REDNESS NOTED. BED IN LOWEST POSITIN. CALL LIGHT IN REACH.
--- NOTE | 2021-10-06 04:27 | NUR ---
JEFFREY REMAINED STABLE THROUGHOUT THE NIGHT. SHE HAD A LOOSE BOWEL, HER SACRAL DRESSING WAS REPLACED, NEW UPDATED PICTURES OF THE WOUND WERE TAKEN AND PLACED IN HER CHART.
--- NOTE | 2021-10-06 19:20 | NUR ---
PT ALERT AND ORIETED X 1 PERIODS OF CONFUSN NOTED. POOR APPETITE, ENCOURAGEMENT GIVEN. COMPLIANT WITH MEDICATION REGIMEN. BED IN LOWEST POSITION. CALL LIGHT IN REACH
--- NOTE | 2021-10-07 04:46 | NUR ---
JEFFREY' REMAINED STABLE THROUGHOUT THE SHIFT. HAD ONE BM. HER SACRAL WAS PACKED AND DRESSED WITH MEPILEX.
[2021-10-07 04:51] LABS: Hematocrit 26.4 % (33.0-51.0); Hemoglobin 8.3 g/dL (11.5-16.0); Mean Corpuscular HGB Conc 31.4 g/dL (31.5-36.5); Mean Corpuscular Volume 92 fL (80-100); Mean Platelet Volume 10.6 fL (9.1-12.4); Platelet Count 220 K/mm3 (150-400); RDW Coefficient Variation 15.6 % (11.7-14.2); RDW Standard Deviation 52.9 fL (35.1-46.3); Red Blood Cell Count 2.86 M/mm3 (3.80-5.20)
[2021-10-07 05:16] LABS: Alanine Aminotransfer (ALT/SGP 8 U/L (12-78); Albumin, Blood 1.5 g/dL (3.4-5.0); Albumin/Globulin Ratio 0.5 (0.8-1.8); Alk Phos 116 U/L (50-136); Anion Gap 7 mmol/L (6-16); Aspartate Aminotrans (AST/SGOT 12 U/L (12-37); Bilirubin, Total 0.3 mg/dL (0.1-1.0); Blood Urea Nitrogen 29 mg/dL (8-24); Bun/Creatinine Ratio 43.9 (12.0-20.0); CO2, Blood 24 mmol/L (21-32); Calcium, Blood 8.2 mg/dL (8.5-10.1); Chloride, Blood 108 mmol/L (98-108); Creatinine, Blood 0.66 mg/dL (0.40-1.00); Globulin, Blood 2.9 g/dL (2.2-4.0); Glomerular Filtration Rate >60 (60-); Glucose, Blood 83 mg/dL (70-99); Potassium, Blood 3.5 mmol/L (3.5-5.5); Sodium, Blood 139 mmol/L (136-145); Total Protein, Blood 4.4 g/dL (6.4-8.2)
[2021-10-07 10:09] LABS: FREE INSULIN 1.5 uU/mL (.); TOTAL INSULIN 1.5 uU/mL (.)
--- NOTE | 2021-10-07 18:26 | NUR ---
PT AAOX1 CONFUSION NOTED. PT HAS POOR APPETITE, FLUIDS ENCOURAGED. PT COMPLIANT WITH MEDS REGIMEN. IV D5 1/2 NS GOING IN IV ACCESS TO CHUCK. PATENT AND INTACT WITH CLEAN, DRY DRESSING IN PLACE. MD VISITED PT ORDER GIVEN FOR DOBHOFF TUBE TO BE INSERTED. XRAY ORDERED, TUBING IN PLACE. SOFT RESTRAINT X I TO ALEYDA TO PREVENT PT FROM PULLING ON TUBES. ASSISTED WOTH ADL'S. BEDIN LOWEST POSITION. CALL LIGHT IN PLACE.
--- NOTE | 2021-10-08 05:31 | NUR ---
PATIENT WAS ALERT AND ORIENTED X1, STABLE VITAL SIGNS, NO ACUTE CHANGES. PATIENT TOLERATED TUBE FEEDING. HUTCHISON WAS PATENT. PATIENT REMOVED DOBHOFF EARLIER IN THE SHIFT BUT WAS REINSERTED, X RAY WAS USED TO CONFIRM PLACEMENT AND THE DOCTOR READ THE X RAY AND CONFIRMED PALCEMENT. SOFT WRIST RESTAINS WHER TOLERANTED. CALL LIGHT WITH IN REACH, BED IN THE LOWEST POSITION.
[2021-10-08 05:50] LABS: Alanine Aminotransfer (ALT/SGP 10 U/L (12-78); Albumin, Blood 1.4 g/dL (3.4-5.0); Albumin/Globulin Ratio 0.5 (0.8-1.8); Alk Phos 135 U/L (50-136); Anion Gap 8 mmol/L (6-16); Aspartate Aminotrans (AST/SGOT 8 U/L (12-37); Bilirubin, Total 0.4 mg/dL (0.1-1.0); Blood Urea Nitrogen 27 mg/dL (8-24); CO2, Blood 23 mmol/L (21-32); Calcium, Blood 8.5 mg/dL (8.5-10.1); Chloride, Blood 108 mmol/L (98-108); Creatinine, Blood 0.69 mg/dL (0.40-1.00); Globulin, Blood 2.8 g/dL (2.2-4.0); Glomerular Filtration Rate >60 (60-); Glucose, Blood 95 mg/dL (70-99); Potassium, Blood 3.9 mmol/L (3.5-5.5); Prealbumin, Blood 9.2 mg/dL (20.0-40.0); Sodium, Blood 139 mmol/L (136-145); Total Protein, Blood 4.2 g/dL (6.4-8.2)
--- NOTE | 2021-10-08 18:36 | NUR ---
Met with daughter to review care needs and prognosis. Discussed hospice she was very tearfull and reptative and did not look well. She is struggling with acceptance. We talked about how both her parents are aging and ill. She feels its becuse they took her of her psyc meds and then would talk about her being taken off of her psyc medications. Review of pt with renan booker. pt not safe on restraints and tube feeding . Peg tube may be contraindicated. NO AD onfile
--- NOTE | 2021-10-08 18:50 | NUR ---
1430 JOSE FEEDING PLACED ON HOLD AT THIS TIME; WAITING ETHICS CONSULT AND FURTHER DISCUSSION FOR PLAN OF CARE.
--- NOTE | 2021-10-08 19:38 | NUR ---
SHIFT SUMMARY PT AWAKE AT START OF SHIFT. IN DROPLET ISO FOR MRSA. HUTCHISON TO GRAVITY PATENT, DRAINING TEA COLORED URINE. PT WITH JOSE TO R NARE. JEVITY 1.2 FEEDING, WAS AT 15 ML/HR. PT TOLERATING WELL WITH NO RESIDUAL. JEVITY TO ASSIST WITH NUTRITION PT NOT EATING MUCH AT ALL. SEVERE TUNNELING WOUNDS TO BUTTOCKS, WITH SLOW HEALING R/T DECREASED NUTRITIONAL INPUT. PT ONLY EATING 3 BITES OF CREAM OF WHEAT AND 1 BITE OF EGGS, REFUSING THE 2ND. PT UNWILLING TO EAT ANY MORE FOR BREAKFAST AND REFUSED ALL OF LUNCH. PT TOOK ONLY 3 SM BITES OF PEACHES AND REFUSED ANYTHING FURTHER. PT INCONTINENT OF BOWEL SEVERAL TIMES TODAY, HAVING VERY LOOSE LIQUID STOOLS. DRSG TO COCCYX CHANGED AT LEAST TWICE D/T BECOMING SOILED. PT FLOATED OFF BUTTOCKS AND REPOSITIONED MULTIPLE TIMES THRU OUT THE DAY. HEELS ALSO FLOATED OFF OF BED. PT'S DAUGHTER IN TO VISIT THIS AFTERNOON. PALLIATIVE CARE NOTIFIED AND DR NORMAN TO TO TALK WITH DAUGHTER. PALLIATIVE CARE RN, MERE ALSO TALKED WITH DAUGHTER, ETHICS CONSULT PLACED AND TUBE FEEDING HELD UNTIL PLAN OF CARE DETERMINED AND DISCUSSED. PT RESTING QUIETLY AT THIS TIME. REPOSITIONED FOR COMFORT. CALL LT IN REACH. BED ALARM ON FOR SAFETY.
--- NOTE | 2021-10-08 23:05 | NUR ---
RECTAL TUBE RECTAL TUBE PLACED @2214, PER DR ROWELL ORDERS BECAUSE PT HAD @LEAST 4 LIQUID MED-LRG BM SINCE BEGINNING OF SHIFT & PT HAS STAGE 4 PRESSURE SORE COCCYX WHICH STOOL KEEPS GETTING INTO. PER DAY SHIFT RN REPORT PT HAS BEEN HAVING LIQUID STOOL. DR ROWELL ALSO ORDERED STOOL SAMPLE.
[2021-10-08 23:50] LABS: C DIFFICILE DNA POSITIVE (Negative)
[2021-10-09 02:27] LABS: Adenovirus F 40/41 Not Detected (NOT DETECT); Astrovirus Not Detected (NOT DETECT); Campylobacter Sp Not Detected (NOT DETECT); Cryptosporidium Not Detected (NOT DETECT); Cyclospora Cayetanensis Not Detected (NOT DETECT); E. Coli O157 Not Detected (NOT DETECT); Entamoeba Histolytica Not Detected (NOT DETECT); Enteroaggregative E. coli-EAEC Not Detected (NOT DETECT); Enteropathogenic E. coli-EPEC Not Detected (NOT DETECT); Enterotoxigenic E. coli-ETEC Not Detected (NOT DETECT); Giardia Lamblia Not Detected (NOT DETECT); Norovirus GI/GII Not Detected (NOT DETECT); Plesiomonas Shigelloides Not Detected (NOT DETECT); Rotavirus A Not Detected (NOT DETECT); Salmonella Sp Not Detected (NOT DETECT); Sapovirus Not Detected (NOT DETECT); Shiga Toxin-prod E. coli-STEC Not Detected (NOT DETECT); Shigella/Enteroin E. coli-EIEC Not Detected (NOT DETECT); Vibrio Cholerae Not Detected (NOT DETECT); Vibrio Sp Not Detected (NOT DETECT); Yersinia Enterocolitica Not Detected (NOT DETECT)
--- NOTE | 2021-10-09 05:01 | NUR ---
SHIFT SUMMARY AOX1, SELF. UNAWARE DATE, PLACE, SITUATION. CONFUSED & FORGETFUL. DIFFICULT TO FOLLOW DIRECTIONS. OCCASIONAL VISUAL HALLUCINATION, REPORTED A CIGARETTE IN HAND WHEN NOTHING THERE. PLEASENT & COOPERATIVE c CARE. VSS. REPORTED "STOMACH ACHE & FEELING LIKE THROWING UP" GAVE ZOFRAN 1X. ABD TENDER TO PALPATION T/O. PT HAD @LEAST 4 MED-LRG LIQUID BROWN BM WITHIN FIRST 3 HRS OF SHIFT, INFORMED DR ROWELL & SHE ORDERED STOOL SAMPLE & RECTAL TUBE TO BE PLACED TO PREVENT FURTHER SKIN BREAKDOWN ON COCCYX WHERE PRESSURE WOUNDS ARE LOCATED. STOOL SAMPLE CAME BACK C. DIFF +, WILL INFORM HOSPITALIST. CHANGED BANDAGE ON STAGE 4 PRESSURE SORE 2X. CHANGED HEEL MEPILEX & APPLIED HEEL PROTECTORS. REPOSITIONED MULTIPLE TIMES. HUTCHISON PATENT & DRAINING DARK ORANGE URINE. R NARES HAS DOBHOFF PLACED, FEEDINGS ARE CURRENTLY ON HOLD. PT REFUSES TO DRINK OR EAT ORALLY MORE THEN 1 BITE OF SOMETHING AT A TIME. HS CBG @98. CALL LIGHT & BED ALARM IN PLACE. WCTM.
--- NOTE | 2021-10-09 09:30 | NUR ---
Ethics consultation service requested. Concerns expressed by [facility] stakeholders regarding the principals existing and projected course of therapy, especially as it pertains to the use of soft restraints to manage nutrition solutions, and prevent self-extraction of feeding tube technologies. With the principal suffering from an irreversible, terminal illness, the prospect of rehabilitating normal eating functions is not in scope. This fundamentally means that the patient is expected to require medical restraints in combination with mechanically administered nutrition and hydration longterm. This is ethically problematic, as the burden of restraint management being imposed on the patient is normally justified based on the fact that it is constitutes a proportionate benefit to the reciepient. The value in the instance before us is highly dubious because it appears to be excessively burdensome to the patient, and is likely to result in significant physical or emotional discomfort, or other complications or harms, in the use of means employed. Restraints, especially in protracted deployement, limit the movement of the patient, promote and excacerbate bed sores and muscle atrophy, reduce independence, and dehumanize the user. The provider assigned to the case should respectfully explain this information to the family so that they fully grasp and appreciate the moral and ethical nuances and difficulties associated with such an approach. From a clinical operations perspective and policy standpoint, restraints are to be used for the shortest possible amount of time and reassessed every 24 hours to see if a less aggressive means would be more suitable given the condition of the patient. Thank you for this consult. Jose Otoole ThD
--- NOTE | 2021-10-09 13:26 | NUR ---
CALL FROM DAUGHTER EMANUEL PTS DAUGHTER CALLED ASKING IF SHE COULD TALK WITH THE DOCTOR INVOLVED WITH HER MOTHERS CARE. DR WAY WAS NOTIFIED AND AGREED TO CALL THE DAUGHTER
--- NOTE | 2021-10-09 14:00 | NUR ---
Placed a call to pt's daughter Izaiah this am, and we had a lengthy conversation regarding pt's current status. Izaiah initially was admittedly upset about the removal of the feeding tube, but as the conversation continued, it became clear that Izaiah's biggest concern is not being able to properly care for her mother's coccyx wound. Meanwhile, the pt did refuse IV nutrition since this admission, and she is refusing food as well, most of the time. PT's daughter Izaiah is actually open to bringing the patient home with home healh, possibly hospice. She states she would need to speak to her sister and father first, and it's very hard to have those conversations". I did offer to be part of either a conference call or in person family meeting to help facilitate the discussion, but she decline at this time.
--- NOTE | 2021-10-09 14:39 | NUR ---
Approximately an hour after finishing telephone call with pt's daughter Izaiah, she contacted pt's bedside nurse to get more information about iv nutrition. Dr. Trevino is aware and plans to call pt's daughter this afternoon. The patient was clear when she was admitted that she was not willing to take artificial nutrition.
--- NOTE | 2021-10-09 16:14 | NUR ---
PT IS A/OX2, SELF AND LOCATION. PT APPEARS TO BE BREATHING EASILY ON RA AT THIS TIME. THE PT WAS MEDICATED WITH TYLENOL FOR CRAFT PAIN X1 THIS AFTERNOON. THE PT HAS A POOR APETITE SO FAR REFUSING ALL MEALS AND TAKING ONLY SMALL SIPS AT A TIME OF ENSURE. THE PTS DOBHOFF WAS REMOVED THIS AM AND WRIST RESTRAINTS REMOVED THE PT HAS NOT PULLED AT ANY LINES SINCE, SO FAR THIS SHIFT. PTS COCCYX WOUND DRESSING WAS CHANGED THIS AM, THE PT TOLERATED IT WELL. WOUND CLINIC RN CAME UP THIS AFTERNOON TO CONSULT ON THE WOUND AND AGREED WITH THE CURRENT TX. THE PT WAS REPOSITIONED T/O THE DAY. RECTAL TUBE IN PLACE AND DRAING LIQUID STOOL,. FLOEY CATH INPLACE AND DRAING. CALL LIGHT IN REACH. WILL CONTINUE TO MONITOR AND ASSESS FOR CHANGES
--- NOTE | 2021-10-10 04:01 | NUR ---
SHIFT SUMMARY NO ACUTE CHANGES THIS SHIFT. AOX2-SELF, TOWN. CONFUSED. HAS DIFFICULTY FOLLOWING DIRECTIONS. HAS VISUAL HALLUCINATIONS, REPORTS SHE IS COOKING & IS TRYING TO GRAB "UTENSILS". VSS. DENIES PAIN, N/V OR SOB. RECTAL TUBE PATENT & DRAINING LIQUID STOOL. SACRUM WOUND DRESSING STAYED C/D/I. HUTCHISON PATENT & DRAINING. CLINIMIX RUNNING 100ML/HR. CALL LIGHT & BED ALARM IN PLACE. TM.
[2021-10-10 13:59] LABS: BASOPHILS ABSOLUTE AUTO 0.03 K/mm3 (0.00-0.23); BASOPHILS PERCENT AUTO 0 % (0-2); EOSINOPHILS ABSOLUTE AUTO 0.21 K/mm3 (0.00-0.68); EOSINOPHILS PERCENT AUTO 3 % (0-6); Hematocrit 25.2 % (33.0-51.0); Hemoglobin 7.8 g/dL (11.5-16.0); IMMATURE GRAN ABSOLUTE AUTO 0.06 K/mm3 (0.00-0.10); IMMATURE GRAN PERCENT AUTO 1 % (0-1); LYMPHOCYTES ABSOLUTE AUTO 1.16 K/mm3 (0.84-5.20); LYMPHOCYTES PERCENT AUTO 14 % (21-46); MONOCYTES ABSOLUTE AUTO 0.35 K/mm3 (0.16-1.47); MONOCYTES PERCENT AUTO 4 % (4-13); Mean Corpuscular HGB 28.9 pg (26.0-34.0); Mean Corpuscular Volume 93 fL (80-100); Mean Platelet Volume 10.6 fL (9.1-12.4); NEUTROPHILS ABSOLUTE AUTO 6.39 K/mm3 (1.96-9.15); NEUTROPHILS PERCENT AUTO 78 % (41-73); Platelet Count 247 K/mm3 (150-400); RDW Coefficient Variation 16.1 % (11.7-14.2); RDW Standard Deviation 54.7 fL (35.1-46.3)
[2021-10-10 14:16] LABS: Albumin, Blood 1.5 g/dL (3.4-5.0); Anion Gap 8 mmol/L (6-16); Blood Urea Nitrogen 28 mg/dL (8-24); Bun/Creatinine Ratio 46.5 (12.0-20.0); CO2, Blood 22 mmol/L (21-32); Calcium, Blood 8.4 mg/dL (8.5-10.1); Chloride, Blood 110 mmol/L (98-108); Glomerular Filtration Rate >60 (60-); Glucose, Blood 115 mg/dL (70-99); Phosphorus, Blood 3.9 mg/dL (2.5-4.9); Potassium, Blood 3.7 mmol/L (3.5-5.5); Sodium, Blood 140 mmol/L (136-145)
--- NOTE | 2021-10-10 16:42 | NUR ---
PT IS ALERT ORIENTED TO SELF. THE PT HAS BEEN HAVING VISUAL HALUCINATIONS TODAY, AND CONFUSED SPEECH. THE PT WAS REPOSITIONED T/O THE DAY. RECTAL TUBE AND HUTCHISON CATHETER REMAIN INTACT AND DRAING AT THIS TIME. THE PT APPEARS TO BE BREATHING EASILY ON RA AT THIS TIME. PT HAS AT TIMES A SMALL AMOUNT OF BLOODY STOOL FROM THE RECTUM AROUND THE RECTAL TUBE ONLY. PT CONTINUES TO HAVE A POOR APETITE, HOWEVER, HAS BEEN TAKEING A FEW MORE BITES TODAY COMPARED TO YESTERDAY CALL LIGHT IN REACH, WILL CONTINUE TO MONITOR AND ASSESS FOR CHANGES
--- NOTE | 2021-10-10 18:04 | NUR ---
After a lengthy discussion today with pt's daughter Izaiah, she is now agreeable to take pt next friday, 10/15 or later, with assistance from hospice. She prefers [facility] as first choice, as she is familiar with them from Home Health services. Izaiah does understand that pt is not improving, and believes the patient will do better overall at home.
--- NOTE | 2021-10-11 04:04 | NUR ---
CONFUSION, HALLUCINATIONS, BEDBOUND,HUTCHISON AND RECTAL TUBE, WOUND TO COCCYX MEPILEX REPLACED ON NOC DUE TO SOILING. TPN RUNNING.
[2021-10-11 05:24] LABS: Hematocrit 24.9 % (33.0-51.0); Hemoglobin 7.9 g/dL (11.5-16.0)
[2021-10-11 06:20] LABS: Percent Saturation 19.8 % (15.0-50.0)
[2021-10-11 09:40] LABS: Stool Occult Blood Guaiac 1 Neg (Neg)
--- NOTE | 2021-10-11 16:53 | NUR ---
PT IS ALERT ORIENTED TO SELF. THE PT APPEARS TO BE MORE ALERT AND TALKATIVE TODAY COMPARED TO YESTERDAY. THE PTS APPETITE HAS IMPROVED AND SO FAR HAS ATE APROXIMATLY 50% OF MEAL. A FAMILY MEEMBER WAS IN TO SEE THE PT AND ALSO WAS ABLE TO GIVE THE PT SOME FOOD. THE PT WAS TURNED/REPOSITIONED T/O THE DAY, THE PTS COCCYX WOUND WAS CHANGED TODAY. PT WAS GIVEN A BED BATH. THE PTS RECTAL TUBE IN PLACE PT IS STILL HAVING LOOSE STOOL. HUTCHISON CATH INPLACE AND DRAINING. BED ALARM SCULLION CHIEF LIGHT IN REACH. WILL CONTINUE TO MONIOTR AND ASSESS FOR CHANGES
--- NOTE | 2021-10-12 03:54 | NUR ---
ALERT AND TALKATIVE ON NOC. VISUAL AND AUDITORY HALLUCINATIONS. LOTS OF SELF TALK. HUTCHISON AND RECTAL TUBE IN PLACE AND DRAINING. URINE CLEAR YELLOW. MEPILEX ON COCCYX CDI. EXP WHEEZES. TPN RUNNING.
[2021-10-12 05:06] LABS: Hematocrit 24.6 % (33.0-51.0); Hemoglobin 7.7 g/dL (11.5-16.0)
[2021-10-12 06:04] LABS: Albumin, Blood 1.7 g/dL (3.4-5.0); Anion Gap 7 mmol/L (6-16); Blood Urea Nitrogen 31 mg/dL (8-24); Bun/Creatinine Ratio 43.8 (12.0-20.0); CO2, Blood 21 mmol/L (21-32); Calcium, Blood 8.5 mg/dL (8.5-10.1); Chloride, Blood 107 mmol/L (98-108); Creatinine, Blood 0.71 mg/dL (0.40-1.00); Glomerular Filtration Rate >60 (60-); Glucose, Blood 199 mg/dL (70-99); Phosphorus, Blood 5.1 mg/dL (2.5-4.9); Potassium, Blood 5.3 mmol/L (3.5-5.5); Sodium, Blood 135 mmol/L (136-145)
--- NOTE | 2021-10-12 19:11 | NUR ---
SHIFT SUMMARY: PT A/O TO SELF, ON BEDREST. TALKATIVE BUT DOES NOT ALWAYS MAKE SENSE. SHE HAS HAD HALLUCINATIONS OFF AND ON TODAY. PAINAD IS 0/10. MEPILEX DRESSING ON BOTTOM CDI. POWERGLIDE DRESSING CHANGE COMPLETED TODAY. CLINIMIX RUNNING. PT REFUSING LIQUICELL, WILL NOT DRINK. RECTAL TUBE IN PLACE DRAINING LIQUID STOOL, BROWN COLORED. HUTCHISON CATH IN PLACE DRAINING CLEAR YELLOW URINE. HEEL PROTECTORS ON AND FEET FLOATED.
[2021-10-13 05:36] LABS: Hematocrit 27.3 % (33.0-51.0); Hemoglobin 8.5 g/dL (11.5-16.0)
--- NOTE | 2021-10-13 06:27 | NUR ---
SHIFT SUMMARY PATIENT ALERT AND ORIENTED TO SELF ONLY. HAD NO COMPLAINTS OF PAIN OR SHORTNESS OF BREATH. NO ACUTE ISSUES NOTED OVERNIGHT. CALL LIGHT WITHIN REACH. REPORT GIVEN TO ONCOMING RN.
--- NOTE | 2021-10-13 17:04 | NUR ---
SHIFT SUMMARY PATIENT IS ALERT AND ORIENTED TO SELF ONLY. PATIENT REMAINS ON BEDREST. RECTAL TUBE AND IV REMAIN PATENT. PATIENT HAS NOT ATE MUCH THIS SHIFT. PATIENT HAS NOT BEEN VERBAL MOST OF SHIFT. MEPILEX DRESSING IN PLACE ON BUTTOCKS WOUND. PATIENT HAS BEEN DIFFICULT TO TAKE MEDICATIONS AND REFUSED LIQUICELL. PATIENT HAS BEEN TURNED Q2. NO ACUTE EVENTS THIS SHIFT. VITAL SIGNS REVIEWED. BED IN LOCKED AND LOWEST POSITION. CALL LIGHT IN PLACE. WILL MONITOR UNTIL SHIFT CHANGE
--- NOTE | 2021-10-14 06:01 | NUR ---
SHIFT SUMMARY PATIENT ALERT AND ORIENTED TO SELF ONLY. MEDICATED PER EMAR FOR PAIN. NO SIGNS OF HAVING DIFFICULTY BREATHING. NO ACUTE ISSUES NOTED OVERNIGHT. BED IN LOWEST POSITION WITH WHEELS LOCKED AND ALARM ON. CALL LIGHT WITHIN REACH. REPORT GIVEN TO ONCOMING RN.
--- NOTE | 2021-10-14 16:35 | NUR ---
SHIFT SUMMARY PATIENT IS ALERT AND ORIENTED TO SELF ONLY. PATIENT HAS NO COMPLAINTS OF PAIN, SOB, NAUSEA, OR VOMITTING THIS SHIFT. NO ACUTE EVENTS THIS SHIFT. PATIENTS HUTCHISON CATHETER IS DRAINING RAMY URINE TO GRAVITY, RECTAL TUBE IS DRAINING STOOL TO GRAVITY. VITAL SIGNS REVIEWED. BED IN LOCKED AND LOWEST POSITION. CALL LIGHT IN PLACE. TURNED Q2. WILL MONITOR UNTIL SHIFT CHANGE
--- NOTE | 2021-10-15 05:42 | NUR ---
SHIFT SUMMARY PATIENT ALERT AND ORIENTED TO SELF. HAD NO COMPLAINTS OF PAIN OR SHORTNESS OF BREATH. WOUND ON BUTTOCK CLEANED, PHOTOGRAPHED, AND REDRESSED. NO ACUTE ISSUES NOTED. BED IN LOWEST POSITION WITH WHEELS LOCKED AND ALARM ON. CALL LIGHT WITHIN REACH. REPORT GIVEN TO ONCOMING RN.
--- NOTE | 2021-10-15 17:05 | NUR ---
NO ACUTE CHANGES THIS SHIFT. PATIENT AWAITING D/C TO HOSPICE POSSIBLY AT HOME. DAUGHTER DAGOBERTO HAS BEEN IN CONTACT WITH PALLIATIVE CARE NURSE. RECTAL TUBE IN PLACE, CONTINUES TO HAVE LOOSE STOOL. HUTCHISON TO GRAVITY. VSS, ON RA. BREATHING TX PER RT. TAKES PILLS CRUSHED IN APPLESAUCE. POOR APPETITE, PATIENT IS A FEEDER. MEPILEX TO SACRUM REMAINS C/D/I. FOAM HEEL PROTECTORS IN PLACE. CLINIMIX INFUSING AT 100ML/HR, POWERGLIDE TO CHUCK.
--- NOTE | 2021-10-15 17:07 | NUR ---
See Palliative Conference note
--- NOTE | 2021-10-16 03:55 | NUR ---
SUMMARY: PT ORIENTED TO SELF ONLY AND WAS ENTIRELY NONVERBAL THIS SHIFT OTHER THAN NODDING/RESPONDING "YES" TO PAIN. TYLENOL RECIEVED PRN FOR TOLERABLE RELIEF AND PILLS TOLERATED CRUSHED W/APPLESAUCE AFTER ENCOURAGEMENT. TURN SCHEDULE MAINTAINED W/HEEL PROTECTORS IN PLACE FOR ADDITIONAL SBD PREVENTION. PILLOWS PLACED FOR SUPPORT OF BONY PROMINENCES. MEPILEX DX REMAINS C/D/I TO DECUB COCCYX WOUND, PLAN TO CHANGE PRIOR TO SHIFT CHANGE PRN. RECTAL TUBE IS INTACT FOR CONT'D LOOSE STOOL R/T C.DIFF INFECTION. HUTCHISON PATENT AND DRAINING TO GRAVITY. CLINIMIX INFUSES TO L.UPPER ARM PG AND PT HAS A POOR APPETITE W/FEEDER ASSIST REQUIRED FOR PO INTAKE. NO ACUTE CHANGES, VSS AND AFEBRILE. WCTM AND REPORT TO DAY RN.
--- NOTE | 2021-10-16 16:16 | NUR ---
PATIENT CONTINUES TO BE VERY WITHDRAWN AND WILL NOT SPEAK TO STAFF OR ANSWER QUESTIONS. VERY LITTLE PO INTAKE. DRESSING CHANGED TO BUTTOCKS WOUNDS THIS SHIFT PER WOUND CARE ORDERS. VSS, ON RA. RECTAL TUBE IN PLACE, CONTINUES TO HAVE MODERATE AMOUNT OF LOOSE STOOL. HUTCHISON TO GRAVITY. PLAN IS TO D/C HOME WITH HOSPISE. PALLIATIVE CARE CONSULTING.
--- NOTE | 2021-10-17 04:39 | NUR ---
SHIFT SUMMARY NO ACUTE EVENTS OVERNIGHT.PT IS WITHDRAWN, DOESNT SPEAK OR ANSWER QUESTIONS. DRESSINGS ON BUTTOCKS CHANGED.RECTAL TUBE IN PLACE AND HUTCHISON TO GRAVITY. VSS REVIEWED. ALL FALL PRECAUTION IN PLACE. WILL CONTINUE TO MONITOR .
--- NOTE | 2021-10-17 10:04 | NUR ---
Pt's daughter would like to take pt home with hospice, but requests rectal tube be left in place to manage watery stool due to large coccyx wound. Pt has been on [facility], so daughter's first choice is [facility]. However, they do not have any availability for the rest of this week. Pt's daughter open to other agencies given this information. Will check with other agencies for availability.
--- NOTE | 2021-10-17 16:14 | NUR ---
SHIFT SUMMARY PT RESTING QUIETLY AT START OF SHIFT. IN ISOLATION FOR C-DIFF; RECTAL TUBE IN PLACE. PT INCONTINENT OF BOWEL AND BLADDER. HUTCHISON TO GRAVITY, PATENT. SEVERE WOUNDS TO BUTTOCK/COCCYX AREA. CALCIUM ALGINATE PLACE IN WOUND, NEW MEPILEX PLACED. PT REFUSING MOST ALL OF CARE AND MEDICATIONS. DR WAY HERE TO SEE PT, NO NEW ORDERS GIVEN. PT REPOSITIONED AND FLOATED ON PILLOWS ALLOWED. PT DOES NOT TALK MUCH AT ALL; ONLY A COUPLE OF WORDS THE WHOLE DAY. BED ALARM ON FOR SAFETY. CALL LT IN REACH.
--- NOTE | 2021-10-17 18:29 | NUR ---
PT REFUSING ORAL CARE TODAY. DID NOT WANT TO EAT ANYTHING FOR DINNER EITHER. PT HAS NOT ATE ANYTHING TODAY, EXCEPT A COUPLE OF BITES FOR BREAKFAST, PER WORKERS COMPENSATION CLAIMS ANALYST. PT C/O BEING REPOSITIONED WELL, SAYING SHE DOESN'T HAVE TIME. BED ALARM ON FOR SAFETY. CALL LT IN REACH.
--- NOTE | 2021-10-18 04:16 | NUR ---
SHIFT SUMMARY PT REFUSED ALL MEDS.PT WAS ALL RESTLESS AT THE BEGINNING OF SHIFT AND THEN SLEPT INTERMITTENTLY. PT REMAINS ON CONTACT PRECUTION FOR C=DIFF.AND HUTCHISON TO GRAVITY IN PLACE.PT WAS CHANGED AND REPOSITIONNED NEEDED.DRESSING ON BUTTOCK INTACT . ALL FALL PRECAUTION IN PLACE. WILL CONTINUE TO [facility].
[2021-10-18] MEDS ORDERED: DIFICID200 MG PO (09:56)
[2021-10-18] MEDS ORDERED: OMEP20ER PO (09:56)
[2021-10-18] MEDS ORDERED: ACET325 PO (09:56)
[2021-10-18] MEDS ORDERED: VISBIOME 112.51 EACH PO (09:57)
[2021-10-18] MEDS ORDERED: LORA.5 PO (09:57)
[2021-10-18] MEDS ORDERED: Seroquel Xr50 MG PO (09:57)
[2021-10-18] MEDS ORDERED: MORP20L PO (09:58)
--- NOTE | 2021-10-18 11:15 | NUR ---
PT AWAKE THIS AM. REFUSING MOST CARE. DID EAT A FEW BITES OF BREAKFAST FROM GROMMET WORKER, THEN REFUSING. DR WAY IN TO SEE PT THIS AM; D/C ORDERS TO BE PLACED. BED BATH GIVEN. WOUNDS TO BUTTOCKS/COCCYX CLEANED. NEW ALGINATE PLACED AND NEW MEPILEX TO COCCYX. NEW HEEL DRSG'S PLACED WELL. PT COMPLETELY CONFUSED AND DISORIENTED. MEDICAL TRANSPORT HERE AT 10:30 TO TAKE PT HOME ON HOSPICE. ALL BELONGINGS SENT WITH PT.
== END 2021-10-18 11:00 | disposition hospice, home (50) | DRG 871 ==
LOC: ER 12:40 → MEDS 16:49
PROVIDERS: Family Medicine; Internal Medicine; Physician Assistant; Surgery; ADMIT Family Medicine
DX: A41.01 Sepsis due to Methicillin susceptible Staphylococcus aureus (principal); L89.154 Pressure ulcer of sacral region, stage 4; G92.8 Other toxic encephalopathy; J69.0 Pneumonitis due to inhalation of food and vomit; E43 Unspecified severe protein-calorie malnutrition; L03.312 Cellulitis of back [any part except buttock and flank]; Z51.5 Encounter for palliative care; I13.0 Hypertensive heart and chronic kidney disease with heart failure and stage 1 through stage 4 chronic kidney disease, or unspecified chronic kidney disease; N17.9 Acute kidney failure, unspecified; A04.72 Enterocolitis due to Clostridium difficile, not specified as recurrent; Z20.822 Contact with and (suspected) exposure to COVID-19; I50.9 Heart failure, unspecified; E11.649 Type 2 diabetes mellitus with hypoglycemia without coma; R00.0 Tachycardia, unspecified; F10.20 Alcohol dependence, uncomplicated; Z78.1 Physical restraint status; D63.1 Anemia in chronic kidney disease; M10.9 Gout, unspecified; E11.22 Type 2 diabetes mellitus with diabetic chronic kidney disease; N18.30 Chronic kidney disease, stage 3 unspecified; F41.9 Anxiety disorder, unspecified; Z68.29 Body mass index [BMI] 29.0-29.9, adult; F32.A Depression, unspecified; K21.9 Gastro-esophageal reflux disease without esophagitis; F03.90 Unspecified dementia, unspecified severity, without behavioral disturbance, psychotic disturbance, mood disturbance, and anxiety; Z88.2 Allergy status to sulfonamides; Z88.1 Allergy status to other antibiotic agents; Z88.6 Allergy status to analgesic agent; Z79.899 Other long term (current) drug therapy; Z90.49 Acquired absence of other specified parts of digestive tract; Z98.890 Other specified postprocedural states; Z87.891 Personal history of nicotine dependence; Z28.21 Immunization not carried out because of patient refusal
CPT/HCPCS: 0097U; 0241U; 36415; 71045; 73590; 74177; 80048; 80053; 80069; 82010; 82272; 82607; 82728; 82746; 82947; 83525; 83527; 83540; 83550; 83605; 83735; 84100; 84134; 84145; 84206; 84484; 85014; 85018; 85025; 85027; 85651; 86140; 86337; 87040; 87077; 87147; 87186; 87324; 87493; 92526; 92610; 93005; 93010; 94640; 94664; 94760; 96365; 96367; 97165; 97530; 99285-25; A9270; C1751; J0692; J1630; J1650; J2405; J7030; J7042; J7050; J7060; Q9967

== ENCOUNTER → 2021-11-30 | Outpatient (CLI) | payer MEDICARE, OTHER ==
[~2021-11-30] MED LIST changes: +ACET325 PO; +COLCHICINE0.6 MG PO; +DIFICID200 MG PO; +LORA.5 PO; +MORP20L PO; +NYSTATIN15 GM TOP; +NYSTOP15 GM TOP; +Norco 10-325 T1 EACH PO; +OMEP20ER PO; +VISBIOME 112.51 EACH PO
[2021-11-30 13:08] LABS: Source, Urine Straight Cath
[2021-11-30 13:30] LABS: Bilirubin, Urine Neg (Neg); Blood, Urine 3+ (Neg); Glucose Qualitative, Urine Neg (Neg); Ketones, Urine Neg (Neg); Leukocyte Esterase, Urine 3+ (Neg); Nitrite, Urine Neg (Neg); Protein, Urine 3+ (Neg); Specific Gravity, Urine 1.015 (1.003-1.022); Urobilinogen, Urine 1+ (Normal)
[2021-11-30 13:40] LABS: Appearance, Urine Hazy (Clear); Color, Urine Pale Yellow (P-Yellow)
[2021-11-30 13:41] LABS: Bacteria Many /hpf; Squamous Epithelial Cells Few /hpf (Few); Transitional Epithelial Cells Rare /hpf (0-Rare); Yeast/Fungi Urine Rare /hpf
== END ==
LOC: LAB HH 11:10 → LAB SHORT 11:10
PROVIDERS: Internal Medicine
DX: R39.15 Urgency of urination (principal)
CPT/HCPCS: 81001

== ENCOUNTER → 2022-02-19 | Outpatient (CLI) | payer MEDICARE, OTHER ==
[2022-02-19 18:57] LABS: BASOPHILS ABSOLUTE AUTO 0.03 K/mm3 (0.00-0.23); BASOPHILS PERCENT AUTO 1 % (0-2); EOSINOPHILS ABSOLUTE AUTO 0.32 K/mm3 (0.00-0.68); EOSINOPHILS PERCENT AUTO 6 % (0-6); Hematocrit 31.6 % (33.0-51.0); Hemoglobin 9.8 g/dL (11.5-16.0); IMMATURE GRAN ABSOLUTE AUTO 0.01 K/mm3 (0.00-0.10); IMMATURE GRAN PERCENT AUTO 0 % (0-1); LYMPHOCYTES ABSOLUTE AUTO 1.16 K/mm3 (0.84-5.20); LYMPHOCYTES PERCENT AUTO 22 % (21-46); MONOCYTES ABSOLUTE AUTO 0.22 K/mm3 (0.16-1.47); MONOCYTES PERCENT AUTO 4 % (4-13); Mean Corpuscular HGB 28.1 pg (26.0-34.0); Mean Corpuscular Volume 91 fL (80-100); Mean Platelet Volume 10.4 fL (9.1-12.4); NEUTROPHILS ABSOLUTE AUTO 3.47 K/mm3 (1.96-9.15); NEUTROPHILS PERCENT AUTO 67 % (41-73); Platelet Count 202 K/mm3 (150-400); RDW Coefficient Variation 15.7 % (11.7-14.2); RDW Standard Deviation 51.5 fL (35.1-46.3); Red Blood Cell Count 3.49 M/mm3 (3.80-5.20); White Blood Cell Count 5.21 K/mm3 (4.00-11.30)
[2022-02-19 19:53] LABS: LDL/HDL RATIO 0.8; Very Low Density Lipoprot Chol 18 mg/dL (6-32)
[2022-02-19 19:54] LABS: Alanine Aminotransfer (ALT/SGP 15 U/L (12-78); Albumin, Blood 2.6 g/dL (3.4-5.0); Albumin/Globulin Ratio 0.8 (0.8-1.8); Alk Phos 104 U/L (50-136); Anion Gap 6 mmol/L (6-16); Aspartate Aminotrans (AST/SGOT 15 U/L (12-37); Bilirubin, Total 0.3 mg/dL (0.1-1.0); Blood Urea Nitrogen 19 mg/dL (8-24); Bun/Creatinine Ratio 23.8 (12.0-20.0); CO2, Blood 26 mmol/L (21-32); Calcium, Blood 8.7 mg/dL (8.5-10.1); Chloride, Blood 107 mmol/L (98-108); Cholesterol 173 mg/dL (50-200); Globulin, Blood 3.2 g/dL (2.2-4.0); Glomerular Filtration Rate >60 (60-); Glucose, Blood 94 mg/dL (70-99); HDL Cholesterol 86 mg/dL (>39); Low Density Lipoprotein Chol 69 mg/dL (0-110); Sodium, Blood 139 mmol/L (136-145); Total Protein, Blood 5.8 g/dL (6.4-8.2); Triglycerides 90 mg/dL (30-160)
== END ==
LOC: LAB SHORT 12:30
DX: E11.9 Type 2 diabetes mellitus without complications (principal); I50.9 Heart failure, unspecified; R30.0 Dysuria; Z00.00 Encounter for general adult medical examination without abnormal findings
CPT/HCPCS: 80053; 80061; 83036; 83880; 84443; 85025

== ENCOUNTER → 2022-02-21 | Outpatient (CLI) | payer MEDICARE, OTHER | END | disposition home or self-care (01) | LOC: LAB SHORT 12:45 | DX: R30.0 Dysuria (principal) | CPT/HCPCS: 87086; 87106 ==